=== PATIENT | female | born 1980 | race Caucasian/White ===

== ENCOUNTER 2023-07-20 16:19 | Emergency (ER) | payer OTHER, SELFPAY ==
[2023-07-20 16:34] VITALS: BP 142/97
[2023-07-20 19:39] LABS: % Eosinophils 3.2 % (0-6); % Immature Granulocytes 0.3 % (0-0.5); % Lymphocytes 26.8 % (20.5-51.1); % Monocytes 5.9 % (1.7-9.3); % Neutrophils 62.8 % (42.2-75.2); Absolute Basophils 0.1 10^3/uL (0-0.2); Absolute Eosinophils 0.3 10^3/uL (0-0.7); Absolute Lymphocytes 2.1 10^3/uL (1.2-3.4); Absolute Monocytes 0.5 10^3/uL (0.1-0.6); Absolute Neutrophils 4.9 10^3/uL (1.4-6.5); Hemoglobin 13.2 g/dL (12.0-16.0); Mean Corp Hgb Conc. 33.8 g/dL (33.0-37.0); Mean Corpuscular Hgb 27.6 pg (27.0-31.0); Mean Corpuscular Volume 81.4 fL (81.0-99.0); Mean Platelet Volume 9.8 fL (7.4-10.4); Nucleated Red Blood Cells % 0 %; Platelet Count 263 10^3/uL (130-400); Red Blood Cell Count 4.79 10^6/uL (4.20-5.40); White Blood Cell Count 7.8 10^3/uL (4.8-10.8)
[2023-07-20 19:50] LABS: HCG, Serum Qualitative Screen Negative
[2023-07-20 19:56] LABS: ALT (SGPT) 24 U/L (0-35); AST (SGOT) 20 U/L (14-36); Blood Urea Nitrogen 15 mg/dl (7-17); Calcium 9.1 mg/dl (8.4-10.2); Carbon Dioxide 26 mmol/L (22-30); Chloride 105 mmol/L (98-107); Glucose 93 mg/dl (70-99); Potassium 3.6 mmol/L (3.5-5.1); Sodium 135 mmol/L (135-145); Total Bilirubin 0.4 mg/dl (0.2-1.3); Total Protein 6.5 g/dl (6.3-8.2); eGFR > 60.00
[2023-07-20 20:05] LABS: Alkaline Phosphatase 105 U/L (38-126)
[2023-07-20 20:25] LABS: TSH Reflex To Free T4 0.76 uIU/ml (0.47-4.68)
[2023-07-20] MEDS: CYKLOKAPRON 1300 MG PO (21:27)
[2023-07-20 21:38] LABS: Urine Albumin Negative (Neg - Trace); Urine Bilirubin Negative (Negative); Urine Character Clear (Clear); Urine Color Yellow; Urine Glucose Negative (Negative); Urine Ketone Negative (Negative); Urine Leukocyte Negative (Negative); Urine Nitrite Negative (Negative); Urine Occult Blood 4+ (Negative); Urine Urobilinogen Negative (Neg - 1+)
[2023-07-20 21:47] LABS: Urine Red Blood Cell >100 /HPF (0-2)
[2023-07-20 21:48] LABS: Urine White Cell None Seen /HPF (0-5)
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
== END 2023-07-20 21:32 | disposition home or self-care (01) ==
LOC: EMR 16:19
PROVIDERS: Nurse Practitioner; EMERGENCY PHYSICIAN Emergency Medicine; FAMILY PHYSICIAN Family Medicine
DX: N93.9 Abnormal uterine and vaginal bleeding, unspecified (principal)
CPT/HCPCS: 99284; 76830; 76856; 80053; 81003; 81015; 84443; 84703; 85025

== ENCOUNTER 2023-08-20 12:55 | Emergency (ER) | payer OTHER, SELFPAY ==
[2023-08-20 13:05] VITALS: BP 144/104
[2023-08-20 13:27] LABS: % Basophils 1.1 % (0-2); % Eosinophils 2.1 % (0-6); % Immature Granulocytes 0.3 % (0-0.5); % Monocytes 5.4 % (1.7-9.3); % Neutrophils 65.1 % (42.2-75.2); Absolute Basophils 0.1 10^3/uL (0-0.2); Absolute Eosinophils 0.1 10^3/uL (0-0.7); Absolute Lymphocytes 1.7 10^3/uL (1.2-3.4); Absolute Monocytes 0.4 10^3/uL (0.1-0.6); Absolute Neutrophils 4.3 10^3/uL (1.4-6.5); Hemoglobin 13.2 g/dL (12.0-16.0); Mean Corpuscular Hgb 26.4 pg (27.0-31.0); Mean Platelet Volume 9.7 fL (7.4-10.4); Nucleated Red Blood Cells % 0 %; Platelet Count 276 10^3/uL (130-400); Red Cell Dist. Width 13.3 % (11.5-14.5); White Blood Cell Count 6.7 10^3/uL (4.8-10.8)
[2023-08-20 13:43] LABS: HCG, Serum Qualitative Screen Negative
[2023-08-20 13:46] VITALS: BMI 39.2
[2023-08-20 13:50] LABS: ALT (SGPT) 26 U/L (0-35); AST (SGOT) 21 U/L (14-36); Albumin 3.9 g/dl (3.5-5.0); Alkaline Phosphatase 92 U/L (38-126); Blood Urea Nitrogen 10 mg/dl (7-17); Carbon Dioxide 24 mmol/L (22-30); Chloride 108 mmol/L (98-107); Estimated Creatinine Clearance > 125 ml/min; Glucose 100 mg/dl (70-99); Potassium 3.9 mmol/L (3.5-5.1); Sodium 136 mmol/L (135-145); Total Bilirubin 0.4 mg/dl (0.2-1.3); Total Protein 6.6 g/dl (6.3-8.2); eGFR > 60.00
--- NOTE | 2023-08-20 14:04 | ED.GENMED ---
History of Present Illness
General
Chief Complaint: Allergic Reaction
Source: patient
Exam Limitations: none
Time Seen by Provider: 08/20/23 13:45
Travel History
Have you had any contact with someone who has COVID-19?: No
Do you have any symptoms of coronavirus? Fever > 100 degrees, chills, cough, shortness of breath, sore throat, loss of taste or smell, muscle aches, or headache?: No
History of Present Illness
History of Present Illness:
See MDM
Past History
Past History
ED Past Medical History: Other (History of migraines)
ED Past Surgical History: Tonsilectomy
Social History
Tobacco: Non-smoker
Alcohol: Occasional
Drug: None
Personal:
Living: with family
Employment: Employed
Phy Exam
Physical Exam
Physical Exam:
See MDM
Course
Orders/Labs/Results
Orders:
Orders
08/20/23 13:10
Test Result ONCE
08/20/23 13:16
Complete Blood Count/With Diff Urgent
Comprehensive Metabolic Panel Urgent
HCG, Serum Qualitative Screen Urgent
Abnormal Lab Results
08/20/23
13:16
MCV 80.0 L fL
(81.0-99.0)
MCH 26.4 L pg
(27.0-31.0)
Chloride 108 H mmol/L
(98-107)
Glucose 100 H mg/dl
(70-99)
08/20/23 13:16
08/20/23 13:16
Vital Signs
Initial and Last Documented VS:
Initial Vital Signs
Temp Pulse Resp BP Pulse Ox
98.2 F 103 22 144/104 98
08/20/23 13:05 08/20/23 13:05 08/20/23 13:05 08/20/23 13:05 08/20/23 13:05
Last Documented Vital Signs
Temp Pulse Resp BP Pulse Ox
98.2 F 81 18 140/87 98
08/20/23 13:05 08/20/23 14:37 08/20/23 14:37 08/20/23 14:37 08/20/23 13:05
MDM/Problems Addressed
Differential Diagnosis Includes:
HPI and MDM Narrative:
42-year-old female presenting itching rash over the past day or 2. She is unsure if this is related to a new prescription of propranolol and gabapentin. She states the rash started on her elbows legs. They begin to bleed when she scratches them
and off. She called her doctor and explained that she thought she had some soreness and pain in her mouth. She was sent in for evaluation.
On exam, there is urticaria noted. She has a negative Nikolsky sign. There is mild rash to her chest. I do not appreciate any significant ulceration in the nose or mouth. She denies pain with urination
Physical exam
General: Well appearing and non-toxic
HEENT: protecting airway. No bleeding ulcers noted to mouth
Neck: appears supple
CV: No evidence of cyanosis
Resp: No accessory muscle use
Abd: Non-distended
Extremities: No deformities
Neuro: alert
Psych: Normal affect
Skin: Urticaria to chest, elbows and legs. Dime size unroofed blister to dorsum of left foot
Problems Addressed including Acute and Chronic Conditions affecting care:
1. Rash
Acuity: acute
Prognosis: stable
Details: Given the pruritus, discussed likely allergic reaction. There is no clinical signs of Harrell-Pan's. Patient states she has followed up with rheumatology in the past and was diagnosed with rheumatoid arthritis. She states her
children have diseases. Although we discussed this could be a drug reaction from propranolol, discussed importance of rheumatology follow-up for further testing as this could be autoimmune. Will prescribe steroid taper and discussed cessation of
gabapentin and propranolol until told otherwise
Differential Diagnosis (but not limited to): Harrell-Pan syndrome, allergic reaction, adverse drug reaction
Drug therapy (if applicable): OTC meds, please see d/c instruction regarding Rx drugs
Amount and/or Complexity of Data Reviewed
Clinical info obtained from: Patient
External data reviewed: N/A
Labs I independently reviewed (but not limited to): White blood cell count normal
Radiology: N/A
Pulse Ox: not hypoxic
EKG independently reviewed: N/A
Bowl Sander: N/A
Critical Care: N/A
Risk of Complication:
Social Determinants of health: Good social support
Discussed with other providers: N/A
Escalation of Care includes Admit/Obs: After being observed in the Emergency Department, pt stable for discharge.
Occasional wrong word or 'sound a like' substitutions may have occurred due to the inherent limitations of voice recognition software. Read the chart carefully and recognize, using context, where substitutions have occurred.
*Critical Care Note
Total Time (30-74mins, 75-104mins- exclusive of procedures): Not Applicable
ED Attending Note
-
Portions of this chart may have been created with voice recognition software.� Occasional wrong word or��sound alike� substitutions may have occurred due to the inherent limitations of voice recognition software.
Discharge Plan
Departure
Patient Disposition: Home (Routine Discharge)
Date of Disposition: 08/20/23
Time of Disposition: 14:20
Patient with high blood pressure during this ER visit?: Yes
Discharge Problem:
Adverse reaction to drug
Instructions: Adverse Drug Reactions, Adult (DC), BLOOD PRESSURE
Prescriptions:
New
prednisone 10 mg tablet
See Rx Instructions .ROUTE .COMPLEX Qty: 45 0RF
Rx Instructions:
5 tabs day 1-3, 4 tabs day 4-6, 3 tabs day 7-9, 2 tabs day 10-12, 1 tab day 13-15
No Action
prenat.vits,kristyn,qyu-djqg-pfetf [ Vitamin] 1 TAB tablet
1 tab PO DAILY
ibuprofen 600 MG tablet
600 mg PO Q4HPRN PRN (Reason: moderate pain/cramps) Qty: 0 0RF
tramadol 50 mg tablet
50 mg PO TID PRN (Reason: pain) Qty: 10 0RF
tranexamic acid 650 mg tablet
1,300 mg PO Q8H 5 Days Qty: 30 0RF
Referrals:
Robert Marshall MD [Family Provider] -
Activity Restrictions/Additional Instructions:
Please return for any worsening symptoms.
You may return at any time if you have further concerns.
Please follow up with your doctor at the first available appointment, preferably this week.
Please call the mails supervisor today for first available appointment.
Thank you for choosing [facility].
Interventions
Interventions:
*Risk Screen - Suicide Last Done: 08/20/23 13:46
*General Assessment Last Done: 08/20/23 13:46
*Neglect/Abuse Screening Last Done: 08/20/23 13:46
ED- Fall Risk Assessment Last Done: 08/20/23 13:49
*ED COVID-19 Vaccine History Last Done: 08/20/23 13:46
*Nursing Disposition Last Done: 08/20/23 15:11
ED- Cardiac Assessment Last Done: 08/20/23 13:48
ED- Pulmonary Assessment Last Done: 08/20/23 13:48
ED-Skin Assessment Last Done: 08/20/23 13:48
Discharge Date and Time
Discharge Date/Time: 08/20/23 15:12
[2023-08-20 14:37] VITALS: BP 140/87
== END 2023-08-20 15:12 | disposition home or self-care (01) ==
LOC: EMR 12:55
PROVIDERS: Emergency Medicine; EMERGENCY PHYSICIAN Student in an Organized Health Care Education/Training Program; FAMILY PHYSICIAN Family Medicine
DX: R21 Rash and other nonspecific skin eruption (principal); T44.7X5A Adverse effect of beta-adrenoreceptor antagonists, initial encounter; Y92.9 Unspecified place or not applicable
CPT/HCPCS: 99283; 80053; 84703; 85025

== ENCOUNTER 2023-12-01 14:33 | Emergency (ER) | payer OTHER, SELFPAY ==
[2023-12-01 14:41] VITALS: BP 148/103
--- NOTE | 2023-12-01 15:54 | ED.GENMED ---
History of Present Illness
General
Chief Complaint: Dizziness
Time Seen by Provider: 12/01/23 15:41
Travel History
Have you had any contact with someone who has COVID-19?: No
Do you have any symptoms of coronavirus? Fever > 100 degrees, chills, cough, shortness of breath, sore throat, loss of taste or smell, muscle aches, or headache?: No
History of Present Illness
History of Present Illness:
43-year-old female presents to the emergency department for evaluation of a myriad of complaints that have been ongoing for the past 5 to 7 days. She reports headaches, dizziness, vertigo, nausea, vomiting, and general malaise for the past 5 days.
She also notes having an acute flareup of a chronic rash to her lower abdomen. She also reports intermittent shortness of breath but denies chest pain or coughing. She went to urgent care where she was evaluated with labs that were unremarkable
with the exception of a potassium of 3.3. She had a chest x-ray that was negative and a urinalysis that was negative. She was referred to the emergency department for further evaluation.
Past History
Past History
ED Past Medical History: Other (History of migraines)
ED Past Surgical History: Tonsilectomy
Social History
Tobacco: Non-smoker
Alcohol: Occasional
Drug: None
Personal:
Living: with family
Employment: Employed
Review of Systems
Review of Systems
Allergies reviewed?: Yes
All Other Systems: ROS reviewed and negative except as documented in HPI and ROS
Phy Exam
Physical Exam
Physical Exam:
GEN: Well appearing, NAD, WDWN
HEENT: Oral mucosa moist, no scleral icterus, no nasal congestion
Cardiac: Regular rate and rhythm, no murmurs
Lung: No respiratory distress, no tachypnea, lungs clear to auscultation bilaterally
MSK: No gross deformity or injuries
Skin: Good color, no pallor or jaundice, no rashes
Neuro: AO x3; CN II-XII grossly intact. BUE strength 5/5 in all valentine, sensation intact and symmetric. BLE strength 5/5 in all valentine, sensation intact and symmetric
Psych: Calm, cooperative
Course
Orders/Labs/Results
Orders:
Orders
12/01/23 14:43
Electrocardiogram (*1) Urgent
Reason for Study: Tachycardia
12/01/23 14:44
EKG- Treatment ONCE
12/01/23 15:53
Ketorolac [Toradol] 15 mg IV NOW STA
Lactated Ringers [Lr] 1,000 ml IV BOLUS
Metoclopramide [Reglan] 10 mg IV NOW STA
Potassium Chloride [KCl] 20 meq PO NOW STA
12/01/23 16:24
Lyme Progressive Urgent
TSH Reflex To Free T4 Urgent
12/01/23 14:43
12/01/23 14:43
Vital Signs
Initial and Last Documented VS:
Initial Vital Signs
Temp Pulse Resp BP Pulse Ox
98.9 F 125 18 148/103 100
12/01/23 14:41 12/01/23 14:41 12/01/23 14:41 12/01/23 14:41 12/01/23 14:41
Last Documented Vital Signs
Temp Pulse Resp BP Pulse Ox
98.9 F 70 18 143/89 100
12/01/23 14:41 12/01/23 18:19 12/01/23 18:19 12/01/23 18:19 12/01/23 18:19
MDM/Problems Addressed
MDM/Problems Addressed:
Unclear etiology to the patient's symptoms. Her labs are reassuring (obtained at urgent care and reviewed formal documentation) as well as negative TSH. She was given migraine cocktail and IV fluids with improvement in symptoms. Lyme titers sent.
Low clinical suspicion for significant bacterial infection
Comment
Comment:
EKG independently interpreted by me shows normal sinus rhythm at a rate of [address] changes concerning for ischemia, QTc of 456
*Critical Care Note
Total Time (30-74mins, 75-104mins- exclusive of procedures): Not Applicable
ED Attending Note
-
Portions of this chart may have been created with voice recognition software.� Occasional wrong word or��sound alike� substitutions may have occurred due to the inherent limitations of voice recognition software.
Discharge Plan
Departure
Patient Disposition: Home (Routine Discharge)
Date of Disposition: 12/01/23
Time of Disposition: 18:04
Patient with high blood pressure during this ER visit?: No
Discharge Problem:
Acute viral syndrome
Instructions: Headache, Adult ED
Prescriptions:
No Action
prenat.vits,kristyn,apf-giqt-akfnh [ Vitamin] 1 TAB tablet
1 tab PO DAILY
ibuprofen 600 MG tablet
600 mg PO Q4HPRN PRN (Reason: moderate pain/cramps) Qty: 0 0RF
tramadol 50 mg tablet
50 mg PO TID PRN (Reason: pain) Qty: 10 0RF
tranexamic acid 650 mg tablet
1,300 mg PO Q8H 5 Days Qty: 30 0RF
prednisone 10 mg tablet
See Rx Instructions .ROUTE .COMPLEX Qty: 45 0RF
Rx Instructions:
5 tabs day 1-3, 4 tabs day 4-6, 3 tabs day 7-9, 2 tabs day 10-12, 1 tab day 13-15
Referrals:
Robert Marshall MD [Family Provider] -
Interventions
Interventions:
*Risk Screen - Suicide Last Done: 12/01/23 14:41
*General Assessment Last Done: 12/01/23 14:41
*Neglect/Abuse Screening Last Done: 12/01/23 14:41
ED- Fall Risk Assessment Last Done: 12/01/23 15:48
*ED COVID-19 Vaccine History Last Done: 12/01/23 14:41
*Nursing Disposition Last Done: 12/01/23 18:19
ED- Neurological Assessment Last Done: 12/01/23 15:48
Discharge Date and Time
Discharge Date/Time: 12/01/23 18:19
Print Language: WELSH
[2023-12-01] MEDS: LR 1000 IV (16:12)
[2023-12-01] MEDS: TORADOL 15 MG IV (16:17)
[2023-12-01] MEDS: REGLAN 10 MG IV (16:17)
[2023-12-01 17:39] LABS: TSH Reflex To Free T4 1.19 uIU/ml (0.47-4.68)
[2023-12-01] MEDS: KCL 20 MEQ PO (18:13)
[2023-12-01 18:19] VITALS: BP 143/89
== END 2023-12-01 18:19 | disposition home or self-care (01) ==
LOC: EMR 14:33
PROVIDERS: Physician Assistant; EMERGENCY PHYSICIAN Emergency Medicine; FAMILY PHYSICIAN Family Medicine
DX: B34.9 Viral infection, unspecified (principal); R51.9 Headache, unspecified; R42 Dizziness and giddiness; R11.2 Nausea with vomiting, unspecified; R53.81 Other malaise; R21 Rash and other nonspecific skin eruption; R06.02 Shortness of breath; Z88.2 Allergy status to sulfonamides; Z88.7 Allergy status to serum and vaccine; Z88.8 Allergy status to other drugs, medicaments and biological substances; Z88.1 Allergy status to other antibiotic agents; Z91.040 Latex allergy status
CPT/HCPCS: 99284; 96374; 96375; 96361; 84443; 86618; 93005

== ENCOUNTER 2024-01-08 13:23 | Emergency (ER) | payer OTHER, SELFPAY ==
[2024-01-08 13:26] VITALS: BP 157/88
[2024-01-08 13:42] VITALS: BMI 41.7
--- NOTE | 2024-01-08 13:45 | ED.GENMED ---
History of Present Illness
General
Chief Complaint: Flank Pain
Source: patient
Exam Limitations: none
Time Seen by Provider: 01/08/24 13:34
Nursing documentation reviewed up to this point in time: agreed with
History of Present Illness
History of Present Illness:
Patient to ED with complaint of worsening right back and flank pain. Symptoms started on Friday. She was seen at and placed on Macrobid for suspected UTI. Symptoms continue to worsen. SHe went to different today and was advised to come to
ED for eval. Denies fever but reports chills and body aches. +nausea, no vomiting. Brought self to ED for eval.
Past History
Past History
ED Past Medical History: Other (History of migraines)
ED Past Surgical History: Tonsilectomy
Social History
Tobacco: Non-smoker
Alcohol: Occasional
Drug: None
Personal:
Living: with family
Employment: Employed
Review of Systems
Review of Systems
Allergies reviewed?: Yes
All Other Systems: ROS reviewed and negative except as documented in HPI and ROS
Constitutional: Reports chills
ABD/GI: Reports nausea
: Reports dysuria, frequency, urgency and bleeding
Musculoskeletal: Reports no symptoms
Skin: Reports no symptoms
Neurological: Reports no symptoms
Psychiatric: Reports no symptoms
Phy Exam
General Physical Exam
General Presentation: well appearing and mild distress
General age: appears stated age
General Skin: warm and dry
General Habitus: normal
General Mental: alert
Gastrointestinal Exam
Gastrointestinal Exam: soft, no organomegaly, non distended and cva tenderness
Musculoskeletal Exam
Musculoskeletal Exam: full ROM
Skin Exam
Skin Exam: normal color and warm/dry
Psychiatric Exam
Psychiatric Exam: normal mood/affect
Course
Orders/Labs/Results
Orders:
Orders
01/08/24 13:43
0.9% Sodium Chloride 1000 ml [Nss] 1,000 ml IV BOLUS
Ondansetron Injectable [Zofran] 4 mg IV NOW STA
01/08/24 13:44
CT Abd/pel Without Iv Or Oral Urgent
Comment:
Reason For Exam: right back/flank pain
01/08/24 13:45
Test Result ONCE
01/08/24 13:50
Complete Blood Count/With Diff Urgent
Comprehensive Metabolic Panel Urgent
HCG, Serum Qualitative Screen Urgent
Urinalysis Reflex To Culture Urgent
Date Specimen was Collected: 01/08/24
Time Specimen was Collected: 13:47
Urine Microscopic Reflex Cult Urgent
Urine Culture Urgent
OLLIE Source: U
Specimen Description:
Date Specimen was Collected: 01/08/24
Time Specimen was Collected: 13:47
01/08/24 15:13
CefTRIAXone [Rocephin] 1,000 mg IV NOW STA
Abnormal Lab Results
01/08/24
13:50
RDW 14.6 H %
(11.5-14.5)
Glucose 152 H mg/dl
(70-99)
Total Protein 6.2 L g/dl
(6.3-8.2)
Urine Ketones Trace A
(Negative)
Ur Occult Blood Reflex 3+ A
(Negative)
Leukocyte Esterase Rfl 2+ A
(Negative)
Urine RBC 26-30 A /HPF
(0-2)
Urine WBC (Reflex) 30-40 A /HPF
(0-5)
Urine Bacteria (Reflex) Moderate A
(Negative)
Urine Albumin (Reflex) 1+ A
(Neg - Trace)
01/08/24 13:50
01/08/24 13:50
Vital Signs
Initial and Last Documented VS:
Initial Vital Signs
Temp Pulse Resp BP Pulse Ox
97.4 F 100 16 157/88 98
01/08/24 13:26 01/08/24 13:26 01/08/24 13:26 01/08/24 13:26 01/08/24 13:26
Last Documented Vital Signs
Temp Pulse Resp BP Pulse Ox
98.1 F 90 14 131/84 100
01/08/24 15:31 01/08/24 15:31 01/08/24 15:31 01/08/24 15:31 01/08/24 15:31
*Radiology
Radiology exam reviewed: radiology read reviewed
*Pulse Oximetry
Patient hypoxic: no
*Critical Care Note
Total Time (30-74mins, 75-104mins- exclusive of procedures): Not Applicable
ED Attending Note
-
Portions of this chart may have been created with voice recognition software.� Occasional wrong word or��sound alike� substitutions may have occurred due to the inherent limitations of voice recognition software.
Discharge Plan
Departure
Patient Disposition: Home (Routine Discharge)
Date of Disposition: 01/08/24
Time of Disposition: 16:04
Patient with high blood pressure during this ER visit?: No
Condition: Good
Discharge Problem:
UTI (urinary tract infection)
Instructions: Urinary tract infections in adults
Prescriptions:
New
cephalexin 500 mg capsule
500 mg PO BID 7 Days Qty: 14 0RF
No Action
acetaminophen [Tylenol] 325 mg Tablet
650 mg PO Q6HPRN PRN (Reason: mild pain)
fexofenadine [Tram] 180 mg Tablet
180 mg PO HS
doxepin 10 mg Capsule
10 mg PO HSPRN PRN (Reason: sleep)
propranolol [Inderal LA] 120 mg Capsule,Extended Release 24hr
120 mg PO DAILY
propranolol 20 mg Tablet
20 mg PO DAILYPRN PRN (Reason: anxiety)
nitrofurantoin monohyd/m-cryst [Macrobid] 100 mg Capsule
100 mg PO BID
Patient Comments:
01/08/24: filled 01/04/24 for 5 days, patient states she only has 1 dose left
duloxetine [Cymbalta] 60 mg Capsule,Delayed Release(Dr/Ec)
120 mg PO DAILY
tramadol 50 mg tablet
50 mg PO BIDPRN PRN (Reason: moderate pain)
ibuprofen 600 MG tablet
600 mg PO Q4HPRN PRN (Reason: mild pain)
Referrals:
Robert Marshall MD [Family Provider] - Follow up in 2-3 days
Activity Restrictions/Additional Instructions:
Return to the emergency department immediately for any changes in/worsening of your symptoms.
Interventions
Interventions:
*Risk Screen - Suicide Last Done: 01/08/24 13:43
*General Assessment Last Done: 01/08/24 13:42
*Neglect/Abuse Screening Last Done: 01/08/24 13:43
*ED COVID-19 Vaccine History Last Done: 01/08/24 13:26
PH-Wlbiox-Ucfcacrmgl Assessment Last Done: 01/08/24 14:13
ED-Female Genitourinary Assessment Last Done: 01/08/24 14:13
Discharge Date and Time
Print Language: SWISS
[2024-01-08] MEDS: NSS 1000 IV (13:55)
[2024-01-08] MEDS: ZOFRAN 4 MG IV (13:56)
[2024-01-08 14:16] LABS: % Basophils 0.9 % (0-2); % Eosinophils 2.6 % (0-6); % Immature Granulocytes 0.5 % (0-0.5); % Lymphocytes 22.2 % (20.5-51.1); % Monocytes 2.8 % (1.7-9.3); Absolute Basophils 0.1 10^3/uL (0-0.2); Absolute Eosinophils 0.2 10^3/uL (0-0.7); Absolute Lymphocytes 1.9 10^3/uL (1.2-3.4); Absolute Monocytes 0.2 10^3/uL (0.1-0.6); Hematocrit 37.8 % (37.0-47.0); Hemoglobin 12.6 g/dL (12.0-16.0); Mean Corp Hgb Conc. 33.3 g/dL (33.0-37.0); Mean Corpuscular Volume 81.1 fL (81.0-99.0); Mean Platelet Volume 10.4 fL (7.4-10.4); Nucleated Red Blood Cells % 0 %; Platelet Count 250 10^3/uL (130-400); Red Blood Cell Count 4.66 10^6/uL (4.20-5.40); Red Cell Dist. Width 14.6 % (11.5-14.5); White Blood Cell Count 8.5 10^3/uL (4.8-10.8)
[2024-01-08 14:31] LABS: HCG, Serum Qualitative Screen Negative
[2024-01-08 14:34] LABS: ALT (SGPT) 17 U/L (0-35); AST (SGOT) 17 U/L (14-36); Albumin 3.9 g/dl (3.5-5.0); Alkaline Phosphatase 97 U/L (38-126); Blood Urea Nitrogen 11 mg/dl (7-17); Calcium 9.2 mg/dl (8.4-10.2); Carbon Dioxide 24 mmol/L (22-30); Chloride 104 mmol/L (98-107); Estimated Creatinine Clearance > 125 ml/min; Glucose 152 mg/dl (70-99); Potassium 3.8 mmol/L (3.5-5.1); Sodium 136 mmol/L (135-145); Total Bilirubin 0.6 mg/dl (0.2-1.3); Total Protein 6.2 g/dl (6.3-8.2); eGFR > 60.00
[2024-01-08 14:48] LABS: Urine Albumin 1+ (Neg - Trace); Urine Bilirubin Negative (Negative); Urine Character Slightly Cloudy (Clear); Urine Color Yellow; Urine Glucose Negative (Negative); Urine Ketone Trace (Negative); Urine Leukocyte 2+ (Negative); Urine Nitrite Negative (Negative); Urine Occult Blood 3+ (Negative); Urine Urobilinogen Negative (Neg - 1+)
[2024-01-08 14:50] VITALS: BP 131/63
[2024-01-08 15:07] LABS: Urine Urothelial Cell 0-2 /LPF (FEW)
[2024-01-08 15:08] LABS: Urine Bacteria Moderate (Negative); Urine Red Blood Cell 26-30 /HPF (0-2); Urine White Cell 30-40 /HPF (0-5)
[2024-01-08] MEDS: ROCEPHIN 1000 MG IV (15:24)
[2024-01-08 15:31] VITALS: BP 131/84
[2024-01-08 16:52] VITALS: BP 113/64
== END 2024-01-08 16:54 | disposition home or self-care (01) ==
LOC: EMR 13:23
PROVIDERS: Nurse Practitioner; EMERGENCY PHYSICIAN Emergency Medicine; FAMILY PHYSICIAN Family Medicine
DX: N39.0 Urinary tract infection, site not specified (principal)
CPT/HCPCS: 99284; 96374; 96375; 96361; 74176; 80053; 81003; 81015; 84703; 85025; 87086

== ENCOUNTER 2024-03-01 10:37 | Emergency (ER) | payer OTHER, SELFPAY ==
[2024-03-01 10:45] VITALS: BP 172/99
--- NOTE | 2024-03-01 11:29 | ED.GENMED ---
History of Present Illness
General
Chief Complaint: Ear Problem
Time Seen by Provider: 03/01/24 11:05
History of Present Illness
History of Present Illness:
43yoF hx migraines, RA presenting with diffuse joint aches, headache, and left ear pain for the past 3 weeks. pt states she has been seen at urgent care and her PCP multiple times, had negative covid test, negative lyme x2, negative blood work. Pt
states she was started on doxycyline on 02/18 for lyme prophylaxis and then was switched to amoxicillin on 02/25 due to left ear pain. Pt reports decreased hearing in left ear with intermittent tinnitus. Pt reports left sided headache that feels like
'my skull is being crushed', different from previous migraines. Pt states headache is worse by 'everything' and relieved by nothing. Pt denies numbness, weakness, tingling, or visual changes. Pt states she has been taking motrin around the clock and
does not know if she has had a fever. Pt reports diffuse joint aches.
Past History
Past History
ED Past Medical History: Other (History of migraines)
ED Past Surgical History: Tonsilectomy
Social History
Tobacco: Non-smoker
Alcohol: Occasional
Drug: None
Personal:
Living: with family
Employment: Employed
Phy Exam
Physical Exam
Physical Exam:
General: Alert, no acute distress
Head: NCAT
Eyes: clear conjunctiva. PERRLA, EOMI. No nystagmus
ENT: TMs clear bilaterally with no erythema. Ear canals clear bilaterally with no erythema. Cerumen bilateral canals, no impaction
Neck: supple. bilateral cervical tenderness to palpation. FROM
Cardiac: regular rate and rhythm, no murmur
Lungs: clear to auscultation bilaterally. No wheezes, rales, or rhonchi. Speaking full unlabored sentences. No respiratory distress.
Abdomen: soft, nondistended nontender. No rebound or guarding.
MSK: no lower extremity edema bilaterally. No deformity. No swelling or erythema to joints
Skin: warm, dry
Neuro: Alert and oriented x3. CN II - XII grossly intact with no focal deficits. No pronator drift. Normal finger to nose and heel to hastings. No slurred speech
Course
Orders/Labs/Results
Orders:
Orders
03/01/24 11:22
CT Head W/o Iv Contrast Urgent
Comment:
Reason For Exam: headache
Prochlorperazine [Compazine] 10 mg IV NOW STA
03/01/24 11:23
0.9% Sodium Chloride 1000 ml [Nss] 1,000 ml IV BOLUS
Test Result ONCE
03/01/24 11:39
CBC/With Diff [Complete Blood Count/With Diff] Urgent
CMP [Comprehensive Metabolic Panel] Urgent
, Urine Qualitative Screen [HCG, Urine Qualitative Screen] Urgent
Date Specimen was Collected: 03/01/24
Time Specimen was Collected: 11:32
Total CK [Creatine Phosphokinase] Urgent
03/01/24 12:15
Ketorolac [Toradol] 15 mg IV NOW STA
Abnormal Lab Results
03/01/24
11:39
Abs Immat Gran (auto) 0.1 H 10^3/uL
(0-0.05)
Absolute Neuts (auto) 7.8 H 10^3/uL
(1.4-6.5)
Immature Gran % 0.7 H %
(0-0.5)
Lymphocytes % 17.6 L %
(20.5-51.1)
Glucose 102 H mg/dl
(70-99)
03/01/24 11:39
03/01/24 11:39
Vital Signs
Initial and Last Documented VS:
Initial Vital Signs
Temp Pulse Resp BP Pulse Ox
97.7 F 85 16 172/99 98
03/01/24 10:45 03/01/24 10:45 03/01/24 10:45 03/01/24 10:45 03/01/24 10:45
Last Documented Vital Signs
Temp Pulse Resp BP Pulse Ox
97.7 F 74 16 138/75 97
03/01/24 10:45 03/01/24 13:09 03/01/24 13:09 03/01/24 13:09 03/01/24 13:09
MDM/Problems Addressed
Differential Diagnosis Includes:
migraine, brain mass, viral syndrome, rheumatological disorder, electrolyte abnormality
MDM/Problems Addressed:
43yoF hx migraine presenting with diffuse joint aches, headache, and left ear pain for the past 3 weeks. No known fevers, but pt states she has been taking motrin around the clock. Pt was first started on doxycyline for possible lyme (despite having
negative lyme test x2) on 02/18 which was then switched to amoxicillin on 02/25. Pt states she has an appointment with lay up operator on 03/03. Neurologically intact with no focal findings on exam.
CT head shows There are no intracranial abnormalities. There is mild left ethmoid sinusitis. As read by radiology. CK within normal limits. Labs otherwise within normal limits. Discussed results with patient at bedside who denies any nasal
congestion or tooth pain. Pt states she feels better with toradol, compazine, fluids. Vitals stable. Due to patient not having any nasal congestion/tooth pain, completed 10 day course of doxycycline and is currently on amoxicillin, will not treat
further for sinusitis visualized on CT. Will start on steroids for joint aches/headache. Pt states she has an appointment with rheumatology on 03/03. Stable for discharge with rheumatology and PCP follow up
*Critical Care Note
Total Time (30-74mins, 75-104mins- exclusive of procedures): Not Applicable
ED Attending Note
-
Portions of this chart may have been created with voice recognition software.� Occasional wrong word or��sound alike� substitutions may have occurred due to the inherent limitations of voice recognition software.
Discharge Plan
Departure
Patient Disposition: Home (Routine Discharge)
Date of Disposition: 03/01/24
Time of Disposition: 12:57
Patient with high blood pressure during this ER visit?: Yes
Discharge Problem:
Headache
Instructions: Headache, Adult ED, BLOOD PRESSURE
Prescriptions:
New
methylprednisolone [Medrol (Ronak)] 4 mg tablets,dose pack
4 mg PO DAILY Qty: 21 0RF
No Action
acetaminophen [Tylenol] 325 mg Tablet
650 mg PO Q6HPRN PRN (Reason: mild pain)
fexofenadine [Tram] 180 mg Tablet
180 mg PO HS
doxepin 10 mg Capsule
10 mg PO HSPRN PRN (Reason: sleep)
propranolol [Inderal LA] 120 mg Capsule,Extended Release 24hr
120 mg PO DAILY
propranolol 20 mg Tablet
20 mg PO DAILYPRN PRN (Reason: anxiety)
nitrofurantoin monohyd/m-cryst [Macrobid] 100 mg Capsule
100 mg PO BID
Patient Comments:
01/08/24: filled 01/04/24 for 5 days, patient states she only has 1 dose left
duloxetine [Cymbalta] 60 mg Capsule,Delayed Release(Dr/Ec)
120 mg PO DAILY
tramadol 50 mg tablet
50 mg PO BIDPRN PRN (Reason: moderate pain)
ibuprofen 600 MG tablet
600 mg PO Q4HPRN PRN (Reason: mild pain)
cephalexin 500 mg capsule
500 mg PO BID 7 Days Qty: 14 0RF
Referrals:
Robert Marshall MD [Family Provider] -
Activity Restrictions/Additional Instructions:
Take medrol dospak as prescribed
Take Tylenol 975mg every 6 hours and/or ibuprofen 800mg every 8 hours with food as needed for pain
Follow up with rheumatology as scheduled on Friday
Return to the emergency department for numbness, weakness, tingling, visual changes or new/worsening symptoms
Interventions
Interventions:
*Risk Screen - Suicide Last Done: 03/01/24 11:25
*General Assessment Last Done: 03/01/24 11:25
*Neglect/Abuse Screening Last Done: 03/01/24 11:25
*Nursing Disposition Last Done: 03/01/24 13:09
Discharge Date and Time
Discharge Date/Time: 03/01/24 13:09
Print Language: BURKINAN
[2024-03-01] MEDS: NSS 1000 IV (11:56)
[2024-03-01] MEDS: COMPAZINE 10 MG IV (11:56)
[2024-03-01 12:02] LABS: % Basophils 0.9 % (0-2); % Eosinophils 3.1 % (0-6); % Immature Granulocytes 0.7 % (0-0.5); % Lymphocytes 17.6 % (20.5-51.1); % Monocytes 5.5 % (1.7-9.3); % Neutrophils 72.2 % (42.2-75.2); Absolute Basophils 0.1 10^3/uL (0-0.2); Absolute Eosinophils 0.3 10^3/uL (0-0.7); Absolute Immature Granulocytes 0.1 10^3/uL (0-0.05); Absolute Lymphocytes 1.9 10^3/uL (1.2-3.4); Absolute Monocytes 0.6 10^3/uL (0.1-0.6); Absolute Neutrophils 7.8 10^3/uL (1.4-6.5); Hematocrit 39.3 % (37.0-47.0); Hemoglobin 13.2 g/dL (12.0-16.0); Mean Corp Hgb Conc. 33.6 g/dL (33.0-37.0); Mean Corpuscular Hgb 27.2 pg (27.0-31.0); Mean Platelet Volume 10.2 fL (7.4-10.4); Nucleated Red Blood Cells % 0 %; Platelet Count 292 10^3/uL (130-400); Red Blood Cell Count 4.85 10^6/uL (4.20-5.40); Red Cell Dist. Width 13.2 % (11.5-14.5); White Blood Cell Count 10.7 10^3/uL (4.8-10.8)
[2024-03-01 12:07] LABS: HCG, Urine Qualitative Screen Negative
[2024-03-01 12:20] LABS: ALT (SGPT) 19 U/L (0-35); AST (SGOT) 26 U/L (14-36); Albumin 4.2 g/dl (3.5-5.0); Alkaline Phosphatase 83 U/L (38-126); Blood Urea Nitrogen 16 mg/dl (7-17); Calcium 9.8 mg/dl (8.4-10.2); Carbon Dioxide 24 mmol/L (22-30); Chloride 103 mmol/L (98-107); Creatine Phosphokinase 48 U/L (30-135); Glucose 102 mg/dl (70-99); Sodium 139 mmol/L (135-145); Total Bilirubin 0.5 mg/dl (0.2-1.3); Total Protein 6.6 g/dl (6.3-8.2); eGFR > 60.00
[2024-03-01] MEDS: TORADOL 15 MG IV (12:20)
[2024-03-01 13:09] VITALS: BP 138/75
== END 2024-03-01 13:09 | disposition home or self-care (01) ==
LOC: EMR 10:37
PROVIDERS: EMERGENCY PHYSICIAN Emergency Medicine; FAMILY PHYSICIAN Family Medicine
DX: R51.9 Headache, unspecified (principal)
CPT/HCPCS: 99284; 96374; 96375; 96361; 70450; 80053; 81025; 82550; 85025

== ENCOUNTER → 2024-03-17 09:46 | Outpatient (REF) | payer OTHER, SELFPAY | LOC: EMG 09:46 | PROVIDERS: ATTENDING PHYSICIAN Physician Assistant Surgical; FAMILY PHYSICIAN Family Medicine | DX: M54.16 Radiculopathy, lumbar region (principal) | CPT/HCPCS: 95886; 95911 ==

== ENCOUNTER → 2024-03-22 16:58 | Outpatient (REF) | payer OTHER, SELFPAY | LOC: RAD 16:58 | PROVIDERS: ATTENDING PHYSICIAN Nurse Practitioner Family; FAMILY PHYSICIAN Family Medicine | DX: M79.89 Other specified soft tissue disorders (principal); M25.561 Pain in right knee | CPT/HCPCS: 73564; 93971 ==

== ENCOUNTER → 2024-07-29 11:15 | Outpatient (REF) | payer OTHER, SELFPAY | LOC: RAD 11:15 | PROVIDERS: ATTENDING PHYSICIAN Nurse Practitioner Family | DX: J18.9 Pneumonia, unspecified organism (principal) | CPT/HCPCS: 71046 ==

== ENCOUNTER 2024-08-07 16:32 | Emergency (ER) | payer OTHER, SELFPAY ==
[2024-08-07 16:38] VITALS: BP 164/94
[2024-08-07 16:58] LABS: % Basophils 1.5 % (0-2); % Immature Granulocytes 0.5 % (0-0.5); % Lymphocytes 22.6 % (20.5-51.1); % Monocytes 5.4 % (1.7-9.3); Absolute Basophils 0.2 10^3/uL (0-0.2); Absolute Eosinophils 0.3 10^3/uL (0-0.7); Absolute Immature Granulocytes 0.1 10^3/uL (0-0.05); Absolute Lymphocytes 2.3 10^3/uL (1.2-3.4); Absolute Monocytes 0.6 10^3/uL (0.1-0.6); Absolute Neutrophils 6.8 10^3/uL (1.4-6.5); Hematocrit 41.9 % (37.0-47.0); Hemoglobin 13.7 g/dL (12.0-16.0); Mean Corp Hgb Conc. 32.7 g/dL (33.0-37.0); Mean Corpuscular Hgb 26.6 pg (27.0-31.0); Mean Corpuscular Volume 81.2 fL (81.0-99.0); Mean Platelet Volume 9.5 fL (7.4-10.4); Nucleated Red Blood Cells % 0 %; Platelet Count 326 10^3/uL (130-400); Red Blood Cell Count 5.16 10^6/uL (4.20-5.40); Red Cell Dist. Width 13.9 % (11.5-14.5); White Blood Cell Count 10.2 10^3/uL (4.8-10.8)
[2024-08-07 17:25] LABS: ALT (SGPT) 27 U/L (0-35); AST (SGOT) 21 U/L (14-36); Albumin 4.2 g/dl (3.5-5.0); Alkaline Phosphatase 92 U/L (38-126); Blood Urea Nitrogen 11 mg/dl (7-17); Calcium 9.9 mg/dl (8.4-10.2); Carbon Dioxide 25 mmol/L (22-30); Chloride 105 mmol/L (98-107); Glucose 101 mg/dl (70-99); Potassium 3.5 mmol/L (3.5-5.1); Sodium 141 mmol/L (135-145); Total Bilirubin 0.4 mg/dl (0.2-1.3); eGFR > 60.00
[2024-08-07 19:57] VITALS: BMI 40.8
[2024-08-07 20:41] VITALS: BP 116/64
--- NOTE | 2024-08-07 21:37 | ED.GENMED ---
History of Present Illness
General
Chief Complaint: Breathing Problem
Time Seen by Provider: 08/07/24 19:38
History of Present Illness
History of Present Illness:
43-year-old female with history of undiagnosed autoimmune disease presenting for persistent cough and shortness of breath. Patient reports symptoms have been ongoing for over a week. Notes that she was seen and evaluated in the hospital and
diagnosed with pneumonia, started on cefdinir and a Z-Ronak. She reports despite antibiotic she still having shortness of breath, particularly with exertion. She feels that when she walks around her oxygen drops and her heart rate increases. She
reports that her fevers have gone away. Does note some chest tightness. She went to urgent care prior to arrival and was advised to come to the hospital. Denies any history of blood clots. Denies additional acute medical complaints.
Past History
Past History
ED Past Medical History: Other (History of migraines)
ED Past Surgical History: Tonsilectomy
Social History
Tobacco: Non-smoker
Alcohol: Occasional
Drug: None
Personal:
Living: with family
Employment: Employed
Phy Exam
Physical Exam
Physical Exam:
General: Well-appearing, no clinical signs of dehydration, nontoxic and in no acute distress
HEENT: protecting airway
Neck: appears supple
CV: Normal heart rate, regular rhythm, no evidence of cyanosis
Resp: No accessory muscle use, no increased work of breathing, lungs clear to auscultation bilaterally
Abd: Soft and non-distended, no tenderness to palpation
Extremities: No deformities, no swelling
Neuro: alert, no focal neurologic deficit
: deferred
Rectal: deferred
Psych: Normal affect
Skin: Intact
Course
Orders/Labs/Results
Orders:
Orders
08/07/24 16:35
Electrocardiogram (*1) Urgent
Reason for Study: Bradycardia / Tachycardia
EKG- Treatment ONCE
08/07/24 16:48
Complete Blood Count/With Diff Urgent
Comprehensive Metabolic Panel Urgent
08/07/24 21:11
D-Dimer Urgent
Troponin I Urgent
08/07/24 21:55
CR Chest - 2 Views Urgent
Comment:
Reason For Exam: cough and sob
Abnormal Lab Results
08/07/24
16:48
MCH 26.6 L pg
(27.0-31.0)
MCHC 32.7 L g/dL
(33.0-37.0)
Abs Immat Gran (auto) 0.1 H 10^3/uL
(0-0.05)
Absolute Neuts (auto) 6.8 H 10^3/uL
(1.4-6.5)
Glucose 101 H mg/dl
(70-99)
08/07/24 16:48
08/07/24 16:48
Vital Signs
Initial and Last Documented VS:
Initial Vital Signs
Temp Pulse Resp BP Pulse Ox
98.2 F 94 20 164/94 98
08/07/24 16:38 08/07/24 16:38 08/07/24 16:38 08/07/24 16:38 08/07/24 16:38
Last Documented Vital Signs
Temp Pulse Resp BP Pulse Ox
97.8 F 78 22 116/64 99
08/07/24 20:41 08/07/24 20:41 08/07/24 20:41 08/07/24 20:41 08/07/24 20:41
MDM/Problems Addressed
MDM/Problems Addressed:
43-year-old female with history of an undiagnosed autoimmune disease presenting for persistent cough and shortness of breath after recent diagnosis of pneumonia. Vital signs are normal.
On exam patient is resting comfortably, no acute distress or discomfort. No increased work of breathing, lungs clear to auscultation. Symptoms appear consistent with a postinfectious cough versus failure of outpatient therapy. However patient
afebrile, no respiratory distress and nontoxic with lower suspicion for failure of outpatient therapy. PE is a consideration. She notes that every time she walks she feels like her heart rate goes up and oxygen goes down. For this reason we will
obtain laboratory analysis including D-dimer. Will plan for chest x-ray imaging versus CT of the chest pending dimer.
22:00 - Dimer is undetectable without concern for PE at this time. For this reason we will obtain chest x-ray imaging to evaluate for pneumonia
22:10 -patient is refusing ambulatory pulse ox and she is refusing imaging because she has to go home and take care of her daughter. Patient is competent to make her own decisions. She is breathing comfortably without any present hypoxia. Feel
stable for discharge with continued outpatient supportive therapy. Return precautions discussed
*Critical Care Note
Total Time (30-74mins, 75-104mins- exclusive of procedures): Not Applicable
ED Attending Note
-
Portions of this chart may have been created with voice recognition software.� Occasional wrong word or��sound alike� substitutions may have occurred due to the inherent limitations of voice recognition software.
Discharge Plan
Departure
Prescriptions:
No Action
acetaminophen [Tylenol] 325 mg Tablet
650 mg PO Q6HPRN PRN (Reason: mild pain)
fexofenadine [Tram] 180 mg Tablet
180 mg PO HS
doxepin 10 mg Capsule
10 mg PO HSPRN PRN (Reason: sleep)
propranolol [Inderal LA] 120 mg Capsule,Extended Release 24hr
120 mg PO DAILY
propranolol 20 mg Tablet
20 mg PO DAILYPRN PRN (Reason: anxiety)
nitrofurantoin monohyd/m-cryst [Macrobid] 100 mg Capsule
100 mg PO BID
Patient Comments:
01/08/24: filled 01/04/24 for 5 days, patient states she only has 1 dose left
duloxetine [Cymbalta] 60 mg Capsule,Delayed Release(Dr/Ec)
120 mg PO DAILY
tramadol 50 mg tablet
50 mg PO BIDPRN PRN (Reason: moderate pain)
ibuprofen 600 MG tablet
600 mg PO Q4HPRN PRN (Reason: mild pain)
cephalexin 500 mg capsule
500 mg PO BID 7 Days Qty: 14 0RF
methylprednisolone [Medrol (Ronak)] 4 mg tablets,dose pack
4 mg PO DAILY Qty: 21 0RF
Referrals:
Rboert Marshall MD [Family Provider] -
Interventions
Interventions:
*Risk Screen - Suicide Last Done: 08/07/24 16:38
*General Assessment Last Done: 08/07/24 16:38
*Neglect/Abuse Screening Last Done: 08/07/24 19:59
ED- Fall Risk Assessment Last Done: 08/07/24 19:58
*ED COVID-19 Vaccine History Last Done: 08/07/24 16:38
ED- Cardiac Assessment Last Done: 08/07/24 19:59
ED- Pulmonary Assessment Last Done: 08/07/24 19:59
Discharge Date and Time
Print Language: OCCITAN
[2024-08-07 21:41] LABS: D-Dimer < 0.27 ug/mlFEU (0.00-0.50)
[2024-08-07 21:49] LABS: Troponin I < 0.012 ng/ml
--- NOTE | 2024-08-07 22:18 | PTCARENOTE ---
RN in room to take pt to get a CXR. Pt states she is not able to stay an longer. Pt refused CXR and Ambulatory pulse ox. Pt sates she didn't even want to come here and Urgent Care made her come. Valentina made aware and bedside to talk to pt.
== END 2024-08-07 22:24 | disposition home or self-care (01) ==
LOC: EMR 16:32
PROVIDERS: Emergency Medicine; EMERGENCY PHYSICIAN Student in an Organized Health Care Education/Training Program; FAMILY PHYSICIAN Family Medicine
DX: R05.9 Cough, unspecified (principal); R06.02 Shortness of breath; R07.89 Other chest pain; R50.9 Fever, unspecified; J18.9 Pneumonia, unspecified organism; M35.9 Systemic involvement of connective tissue, unspecified; G43.909 Migraine, unspecified, not intractable, without status migrainosus; Z88.2 Allergy status to sulfonamides; Z88.7 Allergy status to serum and vaccine; Z88.8 Allergy status to other drugs, medicaments and biological substances; Z88.1 Allergy status to other antibiotic agents; Z91.040 Latex allergy status
CPT/HCPCS: 99283; 80053; 84484; 85025; 85379; 93005

== ENCOUNTER → 2024-09-16 09:29 | Outpatient (REF) | payer OTHER, SELFPAY | LOC: HWRAD 09:29 | PROVIDERS: ATTENDING PHYSICIAN Nurse Practitioner Family | DX: J98.4 Other disorders of lung (principal); M06.00 Rheumatoid arthritis without rheumatoid factor, unspecified site | CPT/HCPCS: 71250 ==

== ENCOUNTER 2024-11-05 08:35 | Inpatient (IN) | payer OTHER, SELFPAY ==
[2024-11-04] VITALS (7 sets, daily range): BP systolic 108–157; BP diastolic 59–130; BMI 38.3
[2024-11-04 17:27] LABS: % Basophils 0.9 % (0-2); % Eosinophils 6.4 % (0-6); % Immature Granulocytes 0.3 % (0-0.5); % Lymphocytes 22.6 % (20.5-51.1); % Monocytes 8.8 % (1.7-9.3); Absolute Basophils 0.1 10^3/uL (0-0.2); Absolute Eosinophils 0.4 10^3/uL (0-0.7); Absolute Lymphocytes 1.5 10^3/uL (1.2-3.4); Absolute Monocytes 0.6 10^3/uL (0.1-0.6); Absolute Neutrophils 4.1 10^3/uL (1.4-6.5); Hemoglobin 12.5 g/dL (12.0-16.0); Mean Corp Hgb Conc. 32.1 g/dL (33.0-37.0); Mean Corpuscular Hgb 25.2 pg (27.0-31.0); Mean Corpuscular Volume 78.6 fL (81.0-99.0); Mean Platelet Volume 9.9 fL (7.4-10.4); Nucleated Red Blood Cells % 0 %; Platelet Count 247 10^3/uL (130-400); Red Blood Cell Count 4.96 10^6/uL (4.20-5.40); Red Cell Dist. Width 13.9 % (11.5-14.5); White Blood Cell Count 6.7 10^3/uL (4.8-10.8)
--- NOTE | 2024-11-04 17:40 | ED.GENMED ---
History of Present Illness
General
Chief Complaint: Breathing Problem
Source: patient
Exam Limitations: none
Time Seen by Provider: 11/04/24 17:31
History of Present Illness
History of Present Illness:
See MDM
Past History
Past History
ED Past Medical History: Other (History of migraines)
ED Past Surgical History: Tonsilectomy
Social History
Tobacco: Non-smoker
Alcohol: Occasional
Drug: None
Personal:
Living: with family
Employment: Employed
Phy Exam
Physical Exam
Physical Exam:
See MDM
Course
Orders/Labs/Results
Orders:
Orders
11/04/24 17:04
Ipratropium/Albuterol Sulfate [Duoneb] 3 ml .ROUTE .STK-MED ONE
11/04/24 17:17
Electrocardiogram (*1) Stat
Reason for Study: Shortness of Breath
11/04/24 17:18
EKG- Treatment ONCE
11/04/24 17:20
CMP [Comprehensive Metabolic Panel] Urgent
Complete Blood Count/With Diff Urgent
HCG, Serum Qualitative Screen Urgent
Comment: ADD ON
11/04/24 17:21
NT-proBNP Urgent
Comment: ADD ON
Troponin I Urgent
11/04/24 17:37
CT Chest PE Study Urgent
Comment:
Reason For Exam: SOB
Albuterol Sulfate [Ventolin Nebules] 7.5 mg INH R NOW STA
Dexamethasone Sod Phosphate [Decadron] 10 mg IV NOW STA
Ipratropium Nebs [Atrovent Nebules] 1 mg INH R NOW STA
Lorazepam [Ativan] 1 mg IV NOW STA
11/04/24 17:38
Magnesium Sulfate 2 Gram/50 ml [Magnesium Sulfate] 2 gram in 50 ml IV NOW
11/04/24 17:39
Add On- LAB Urgent
Tests Added?: HCG qualitative
COVID-19 Antigen Urgent
Source: Nasal Swab
Influenza A+B Rapid Molecular Urgent
OLLIE Source: Nasal Swab
Specimen Description:
11/04/24 17:41
Ketorolac [Toradol] 30 mg IV NOW STA
11/04/24 17:44
Add On- LAB Urgent
Tests Added?: pro-BNP
11/04/24 19:19
Azithromycin 500 mg IVPB NOW Azithromycin 500 mg/250 ml [Zithromax Infusion] 500 mg in 250 ml IV NOW
CefTRIAXone [Rocephin] 2,000 mg IV NOW STA
Abnormal Lab Results
11/04/24
17:20
MCV 78.6 L fL
(81.0-99.0)
MCH 25.2 L pg
(27.0-31.0)
MCHC 32.1 L g/dL
(33.0-37.0)
Eosinophils % 6.4 H %
(0-6)
Potassium 3.4 L mmol/L
(3.5-5.1)
Chloride 110 H mmol/L
(98-107)
Glucose 128 H mg/dl
(70-99)
11/04/24 17:20
11/04/24 17:20
Vital Signs
Initial and Last Documented VS:
Initial Vital Signs
Temp Pulse Resp BP Pulse Ox
97.5 F 125 26 157/102 99
11/04/24 16:41 11/04/24 16:41 11/04/24 16:41 11/04/24 16:41 11/04/24 16:41
Last Documented Vital Signs
Temp Pulse Resp BP Pulse Ox
97.5 F 107 19 155/84 100
11/04/24 16:41 11/04/24 17:30 11/04/24 17:30 11/04/24 17:00 11/04/24 17:30
MDM/Problems Addressed
Differential Diagnosis Includes:
HPI and MDM Narrative:
43-year-old female presenting for evaluation of shortness of breath. Over the past few days, patient has been coughing and complaining of trouble breathing. She followed with PCP who noted a wheeze and started a breathing treatment. She was sent
to the emergency department for further evaluation given that she has no history of asthma. On arrival, nursing staff started another DuoNeb due to audible wheezing. When I evaluated the patient, she is anxious appearing. She is tachycardic and
has diffuse wheezing throughout. Given her discomfort without prior history of asthma, will obtain CT to rule out PE. Patient does acknowledge that her mother has a history of a saddle embolism. Will give dose of Ativan for anxiety and Toradol
for headache.
Patient started on hour-long nebulizer treatment and given 10 mg of IV Decadron in addition to 2 g of magnesium. Based on her discomfort and significant shortness of breath, will ultimately admit
Physical exam
General: Uncomfortable, anxious, tachypneic
HEENT: protecting airway
Neck: appears supple
CV: No evidence of cyanosis. Tachycardic
Resp: No accessory muscle use. Tachypnea. Diffuse wheezing throughout
Abd: Non-distended
Extremities: No deformities
Neuro: alert
Psych: Anxious
Skin: Intact
Problems Addressed including Acute and Chronic Conditions affecting care:
1. Shortness of breath
Acuity: acute
Prognosis: unstable
Details: Given significant discomfort, will obtain CT to rule out PE. Will start hour-long nebulizer treatment and provide IV steroids
Updates
CT negative for PE. CT consistent with pneumonia. Will start azithromycin and Rocephin. Will admit given severity of symptoms
Differential Diagnosis (but not limited to): Pulmonary embolism, bronchitis, pulm edema
Testing considered: Chest x-ray
Drug therapy (if applicable): OTC meds, please see d/c instruction regarding Rx drugs
Amount and/or Complexity of Data Reviewed
Clinical info obtained from: Patient
External data reviewed: N/A
Labs I independently reviewed (but not limited to): White blood cell count normal
Radiology: The CT scan was personally and independently reviewed. In addition, official CT report reviewed.
Pulse Ox: not hypoxic
EKG independently reviewed: Sinus tachycardia, normal axis, no STEMI
Drying Room Supervisor: Sinus tachycardia
Critical Care: The high probability of a clinically significant, sudden or life threatening deterioration of the pulmonary system(s) required my full and direct attention, intervention and personal management. The aggregate critical care time was 33
minutes. This time is in addition to time spent performing reported procedures but includes the following:
[x] Data Review and interpretation
[x] Patient assessment and monitoring of vital signs
[x] Documentation
[x] Medication orders and management
Risk of Complication:
Social Determinants of health: Good social support
Discussed with other providers: Hospitalist
Escalation of Care includes Admit/Obs: Given the shortness of breath with pneumonia, will start antibiotics and admit
Occasional wrong word or 'sound a like' substitutions may have occurred due to the inherent limitations of voice recognition software. Read the chart carefully and recognize, using context, where substitutions have occurred.
*Critical Care Note
Total Time (30-74mins, 75-104mins- exclusive of procedures): 33 min
ED Attending Note
-
Portions of this chart may have been created with voice recognition software.� Occasional wrong word or��sound alike� substitutions may have occurred due to the inherent limitations of voice recognition software.
Discharge Plan
Departure
Patient Disposition: Admit
Date of Disposition: 11/04/24
Time of Disposition: 19:21
Admit to: Med/Surg
Presentation/result/management discussed w/ accepting MD/DO: Hospitalist
Discharge Problem:
PNA (pneumonia), Wheezing
Prescriptions:
No Action
acetaminophen [Tylenol] 325 mg Tablet
650 mg PO Q6HPRN PRN (Reason: mild pain)
fexofenadine [Tram] 180 mg Tablet
180 mg PO HS
doxepin 10 mg Capsule
10 mg PO HSPRN PRN (Reason: sleep)
propranolol [Inderal LA] 120 mg Capsule,Extended Release 24hr
120 mg PO DAILY
propranolol 20 mg Tablet
20 mg PO DAILYPRN PRN (Reason: anxiety)
nitrofurantoin monohyd/m-cryst [Macrobid] 100 mg Capsule
100 mg PO BID
Patient Comments:
01/08/24: filled 01/04/24 for 5 days, patient states she only has 1 dose left
duloxetine [Cymbalta] 60 mg Capsule,Delayed Release(Dr/Ec)
120 mg PO DAILY
tramadol 50 mg tablet
50 mg PO BIDPRN PRN (Reason: moderate pain)
ibuprofen 600 MG tablet
600 mg PO Q4HPRN PRN (Reason: mild pain)
cephalexin 500 mg capsule
500 mg PO BID 7 Days Qty: 14 0RF
methylprednisolone [Medrol (Ronak)] 4 mg tablets,dose pack
4 mg PO DAILY Qty: 21 0RF
Referrals:
Robert Marshall MD [Family Provider] -
Interventions
Interventions:
*Risk Screen - Suicide Last Done: 11/04/24 16:41
*General Assessment Last Done: 11/04/24 16:41
*Neglect/Abuse Screening Last Done: 11/04/24 16:41
ED- Pulmonary Assessment Last Done: 11/04/24 17:32
Discharge Date and Time
Print Language: [place]IZ[place]
[2024-11-04 17:41] LABS: ALT (SGPT) 30 U/L (0-35); AST (SGOT) 26 U/L (14-36); Albumin 4.1 g/dl (3.5-5.0); Alkaline Phosphatase 90 U/L (38-126); Blood Urea Nitrogen 16 mg/dl (7-17); Calcium 9.3 mg/dl (8.4-10.2); Carbon Dioxide 25 mmol/L (22-30); Chloride 110 mmol/L (98-107); Glucose 128 mg/dl (70-99); Potassium 3.4 mmol/L (3.5-5.1); Sodium 142 mmol/L (135-145); Total Bilirubin 0.4 mg/dl (0.2-1.3); Total Protein 6.5 g/dl (6.3-8.2); eGFR > 60.00
[2024-11-04 17:49] LABS: HCG, Serum Qualitative Screen Negative
[2024-11-04 17:51] LABS: Troponin I < 0.012 ng/ml
[2024-11-04] MEDS: ATROVENT NEBULES 1 MG INH (18:01)
[2024-11-04] MEDS: VENTOLIN NEBULES 7.5 MG INH (18:01)
[2024-11-04 18:02] LABS: NT-proBNP 20.2 pg/ml
[2024-11-04] MEDS: TORADOL 30 MG IV (18:03)
[2024-11-04] MEDS: MAGNESIUM SULFATE 50 IV (18:05)
[2024-11-04] MEDS: DECADRON 10 MG IV (18:06)
[2024-11-04] MEDS: ATIVAN 1 MG IV (18:08)
--- NOTE | 2024-11-04 19:57 | HPS.HSE ---
Addendum entered and electronically signed by Leno Miguel, DO 11/04/24 21:20:
Update: COVID negative, Influenza negative. Procalcitonin undetectable.
Continue supportive measures and observe off of further antibiotics.
Original Note:
Family Physician
-
Family Physician: Robert Marshall
Chief Complaint
-
Cough, SOB
History of Present Illness
Patient is a 43y F with PMH significant for anxiety / depression and ill-defined pain syndrome who presents to ED complaining of cough, wheezing and SOB. Patient states that her symptoms started on Friday evening with fatigue and chest
congestion. Friday she developed non-productive cough, myalgias / joint pain and reported fever at home to 103. Her symptoms persisted over the next few days including SOB with activity or paroxysms of coughing. Patient denies any prior history
of asthma / emphysema. She had a similar pneumonia in June and was treated with multiple courses of abx and steroids at that time before symptoms eventually resolved.
No known sick contacts.
Medical History
Past Medical History
Past Medical History: Reports Other
Additional Past Medical History:
PTSD
OCD
Anxiety
MCV / Skull Fracture
? Rheumatoid Arthritis v Fibromyalgia
Past Surgical History: Reports Other
Additional Past Surgical History:
T&A
Social History
Tobacco: Non-smoker
Alcohol: None
Drug: None
Family History
Family History: Other (Family history of RA / psoriatic arthritis / autoimmune disease.)
Allergies / Home Medications
Allergies reflects when Allergies were last updated in [facility].
Home Medications with original date entered in [facility]
Allergy/Medication List:
Allergies
Allergy/AdvReac Type Severity Reaction Status Date / Time
diphenhydramine HCl Allergy HALLUCINATI Verified 11/04/24 16:45
[From Benadryl] ONS?
etanercept [From Enbrel] Allergy Hives Verified 11/04/24 16:45
gabapentin Allergy Harrell Verified 11/04/24 16:45
Pan
Sydrome
Influenza Virus Vaccines Allergy Anaphylaxis Verified 11/04/24 16:45
latex [Latex] Allergy Rash Verified 11/04/24 16:45
levofloxacin Allergy svt Verified 11/04/24 16:45
Sulfa (Sulfonamide Allergy Rash Verified 11/04/24 16:45
Antibiotics)
sulfamethoxazole Allergy Rash Verified 11/04/24 16:45
topiramate [From Topamax] Allergy hair falls Verified 11/04/24 16:45
out
trimethoprim Allergy Rash Verified 11/04/24 16:45
Home Medications
cetirizine 10 mg tablet (Zyrtec) 10 mg PO DAILYPRN PRN allergies 11/04/24
cholecalciferol (vitamin D3) 125 mcg (5,000 unit) tablet (Vitamin D3) 250 mcg PO FR 11/04/24
cod liver oil 1 cap PO HS 11/04/24
duloxetine 30 mg capsule,delayed release (Cymbalta) 90 mg PO HS 11/04/24
ibuprofen 400 mg tablet 600 mg PO DAILYPRN PRN mild pain 11/04/24
lisdexamfetamine 60 mg capsule (Vyvanse) 60 mg PO DAILY 11/04/24
propranolol 60 mg tablet 60 mg PO BIDPRN PRN anixety 11/04/24
therapeutic multivitamin 1 tab PO DAILY 11/04/24
Review of Systems
-
History Source: Patient
A 12 point ROS was completed and negative except as noted: Yes
Constitutional: Reports Fever and Fatigue; Denies Chills
EENT: Denies Sore Throat
Respiratory: Reports Cough and Trouble Breathing
Cardiac: Denies Chest Pain or Palpitations
Abdomen/GI: Denies Abdominal Pain, Nausea, Vomiting or Diarrhea
: Denies Dysuria or Frequency
Musculoskeletal: Reports Joint Pain and Muscle Pain; Denies Edema
Neurological: Denies Dizzy or Headache
Psych: Reports Anxiety and OCD; Denies Depression
Physical Exam
Vital Signs
Vital Signs
Temp Pulse Resp BP Pulse Ox
97.5 F 96 19 120/74 98
11/04/24 16:41 11/04/24 19:30 11/04/24 17:30 11/04/24 19:00 11/04/24 19:30
Physical Exam
General: Other (43y F in mild distress due to wheezing / cough.)
HEENT: Moist mucous membranes and PERRLA
Respiratory: Other (Diffuse coarse breath sounds and expiratory wheezes. )
Cardiac: S1/S2 and Tachycardia; No Murmur
GI: Soft, Non Tender, Non Distended and Normal Bowel Sounds
Musculoskeletal: No Clubbing, No Cyanosis and No Edema
Neuro: AO x 3
Laboratory Results
-
11/04/24 17:20
11/04/24 17:20
Laboratory Results
Total Bilirubin 0.4 mg/dl (0.2-1.3) 11/04/24 17:20
AST 26 U/L (14-36) 11/04/24 17:20
ALT 30 U/L (0-35) 11/04/24 17:20
Alkaline Phosphatase 90 U/L (38-126) 11/04/24 17:20
Troponin I < 0.012 ng/ml 11/04/24 17:21
Impression/Plan
-
A/P: Patient is a 43y F with PMH significant for PTSD / OCD who presents to ED complaining of cough, wheezing and SOB.
Asthmatic Bronchitis
- Observe overnight for further evaluation and treatment.
- Patient is afebrile without leukocytosis or L shift. Not hypoxemic.
- CT scan findings are subtle / mild and not consistent with pulmonary exam (more diffuse wheezing / rhonchi).
- Seems most c/w asthmatic bronchitis - likely triggered by viral infection.
- COVID / Flu still pending in the ED.
- Added procalcitonin - would hold additional abx if this is normal / negative.
- Continue IV steroids and taper as symptoms improve.
- Nebs ATC and PRN.
- Follow for clinical improvement.
- Given similar episode in June - would consider outpatient Pulmonary evaluation for additional recommendations / work-up.
Pain Syndrome
- Patient notes that she was diagnosed with RA at age 24. Had been on Humira / Plaquenil and occasional steroids since that time.
- Recently started seeing a new Triple Valve Tester who questioned the diagnosis. All prior meds have since been discontinued.
- Current working diagnosis is fibromyalgia. Continue duloxetine.
- Presence of autoimmune process unclear at this time.
- Follow-up with Rheum as an outpatient.
OCD
PTSD
- Continue duloxetine as noted above.
DVT Prophylaxis: Lovenox
Code Status: Full
[2024-11-04] MEDS: ROCEPHIN 2000 MG IV (20:03)
[2024-11-04] MEDS: ZITHROMAX INFUSION 250 IV (20:03)
[2024-11-04 20:32] LABS: COVID-19 Antigen Negative (Negative)
[2024-11-04 20:45] LABS: Procalcitonin < 0.05 ng/ml (0.0-0.25)
--- NOTE | 2024-11-04 22:30 | PTCARENOTE ---
Pt arrived to unit from ED, ambulated independently from stretcher to bed. AAOx3, reports 5/10 headache and lower back pain. Oriented to room, call fitzpatrick in reach.
[2024-11-04] MEDS: DUONEB INH (22:56)
[2024-11-04] MEDS: TYLENOL 650 MG PO (23:15)
[2024-11-04] MEDS: ATIVAN 0.5 MG PO (23:15)
[2024-11-04] MEDS: CYMBALTA DELAYED RELEASE 90 MG PO (23:16)
[2024-11-05] MEDS: DECADRON 4 MG IV ×3 (00:21→15:07)
[2024-11-05] MEDS: VENTOLIN NEBULES 2.5 MG INH (03:37)
--- NOTE | 2024-11-05 04:00 | PTCARENOTE ---
Pt rang call fitzpatrick and reported increased SOB and expiratory wheezing. RT notified and provided PRN albuterol treatment. PATENT PROSECUTION ATTORNEY Thor notified that pt is experiencing a harsh dry cough; PRN robitussin ordered and provided to pt.
[2024-11-05] MEDS: ROBITUSSIN 200 MG PO ×2 (04:43→15:07)
[2024-11-05 06:00] VITALS: BMI 38.5
[2024-11-05] MEDS: ATIVAN 0.5 MG PO (06:07)
[2024-11-05 07:35] VITALS: BP 140/89
[2024-11-05] MEDS: DUONEB 3 ML INH ×4 (07:40→19:39)
[2024-11-05 07:55] LABS: Hematocrit 36.4 % (37.0-47.0); Hemoglobin 11.8 g/dL (12.0-16.0); Mean Corp Hgb Conc. 32.4 g/dL (33.0-37.0); Mean Corpuscular Hgb 25.2 pg (27.0-31.0); Mean Corpuscular Volume 77.8 fL (81.0-99.0); Mean Platelet Volume 10.4 fL (7.4-10.4); Platelet Count 252 10^3/uL (130-400); Red Blood Cell Count 4.68 10^6/uL (4.20-5.40); White Blood Cell Count 9.8 10^3/uL (4.8-10.8)
[2024-11-05 08:28] LABS: Blood Urea Nitrogen 16 mg/dl (7-17); Calcium 9.5 mg/dl (8.4-10.2); Carbon Dioxide 18 mmol/L (22-30); Chloride 109 mmol/L (98-107); Estimated Creatinine Clearance > 125 ml/min; Glucose 211 mg/dl (70-99); Sodium 139 mmol/L (135-145); eGFR > 60.00
[2024-11-05 09:24] LABS: Procalcitonin < 0.05 ng/ml (0.0-0.25)
--- NOTE | 2024-11-05 10:15 | CON.PUL ---
Consultation
Consultation Request
Date/Time Consultation Requested: 11/05/2024-8 AM
Date/Time Consultation Performed: 11/05/2024-8:30 AM
Requesting Provider: Hospitalist
Performing Provider: Dr. Walker
Reason for Consultation: Shortness of breath/asthma
Medical History
-
Chief Complaint: Shortness of breath and wheezing
History of Present Illness:
43-year-old non-smoking female with a history of anxiety and depression who presented with cough, wheezing and shortness of breath after similar episode in the previous month treated with antibiotics and steroids and now reports nonproductive cough,
myalgias, joint pains and fevers of 103-pulmonary consulted for ongoing wheezing and shortness of breath 11/05/2024. The patient continues to complain of some shortness of breath, wheezing, chest tightness, nonproductive cough and offers no
complaints of hemoptysis, abdominal pain, nausea, but has myalgias and joint pains.
Past Medical History
Past Medical History: None (Asthma. PTSD. OCD. Anxiety/depression. Skull fracture.? Rheumatoid arthritis versus fibromyalgia. Tonsillectomy.)
Social History
Tobacco: Non-smoker
Alcohol: None
Drug: None
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
Living: With Family
Occupational Exposures: No known asbestos exposure
Environmental Exposures: No known tuberculosis exposure
Family History
Family History: Other (Rheumatoid arthritis, psoriatic arthritis and autoimmune disease)
Allergies / Home Medications
Allergies
Allergy/AdvReac Type Severity Reaction Status Date / Time
diphenhydramine HCl Allergy HALLUCINATI Verified 11/04/24 16:45
[From Benadryl] ONS?
etanercept [From Enbrel] Allergy Hives Verified 11/04/24 16:45
gabapentin Allergy Harrell Verified 11/04/24 16:45
Pan
Sydrome
Influenza Virus Vaccines Allergy Anaphylaxis Verified 11/04/24 16:45
latex [Latex] Allergy Rash Verified 11/04/24 16:45
levofloxacin Allergy svt Verified 11/04/24 16:45
Sulfa (Sulfonamide Allergy Rash Verified 11/04/24 16:45
Antibiotics)
sulfamethoxazole Allergy Rash Verified 11/04/24 16:45
topiramate [From Topamax] Allergy hair falls Verified 11/04/24 16:45
out
trimethoprim Allergy Rash Verified 11/04/24 16:45
Home Medications
�Medication �Instructions �Recorded �Confirmed �Last Taken �Type
cetirizine 10 mg tablet (Zyrtec) 10 mg PO DAILYPRN PRN allergies 11/04/24 11/04/24 Unknown History
cholecalciferol (vitamin D3) 125 250 mcg PO FR Supplement 11/04/24 11/04/24 10/29/24 History
mcg (5,000 unit) tablet (Vitamin
D3)
cod liver oil 1 cap PO HS Supplement 11/04/24 11/04/24 11/03/24 History
duloxetine 30 mg capsule,delayed 90 mg PO HS Mental Health/Anxiety 11/04/24 11/04/24 11/03/24 History
release (Cymbalta)
ibuprofen 400 mg tablet 600 mg PO DAILYPRN PRN mild pain 11/04/24 11/04/24 11/04/24 History
lisdexamfetamine 60 mg capsule 60 mg PO DAILY Mental 11/04/24 11/04/24 11/04/24 History
(Vyvanse) Health/Anxiety
propranolol 60 mg tablet 60 mg PO BIDPRN PRN anixety 11/04/24 11/04/24 Unknown History
therapeutic multivitamin 1 tab PO DAILY Supplement 11/04/24 11/04/24 Unknown History
Review of Systems
-
Unable to Obtain full review of systems at this time due to: Other ( Per HPI)
Vitals / Labs / Diagnostic Testing
Vital Signs
Temp Pulse Resp BP Pulse Ox
97.9 F 98 24 140/89 98
11/05/24 07:35 11/05/24 07:35 11/05/24 07:35 11/05/24 07:35 11/05/24 07:45
Lab Data
11/05/24 06:44
11/05/24 06:44
Microbiology
11/04/24 19:43 Nasal Swab Influenza Types A & B (JIMBO) - Final
Negative for Influenza A & B, NAAT
Negative results must be combined with clinical observations
and patient history.
Nucleic Acid Amplification test (NAAT)performed on the
[employer] platform.
Diagnostic Testing:
Physical Exam
-
Exam:
Well-nourished and well-developed in no apparent distress
HEENT-atraumatic, normocephalic
Neck-supple, no JVD, no bruit
Heart-regular rate and rhythm-no murmurs, rubs or gallops
Chest with diminished breath sounds, prolonged expiratory time, expiratory wheezes diffusely and no crackles
Back without tenderness
Abdomen-soft, nontender, nondistended, no hepatosplenomegaly
Extremities-no cyanosis, clubbing, edema and good peripheral pulses
Integument-intact, no rashes, lesions or ecchymosis
Neurology-alert and oriented, nonfocal motor and sensory exam
Assessment
-
43-year-old non-smoking female with a history of anxiety and depression who presented with cough, wheezing and shortness of breath after similar episode in the previous month treated with antibiotics and steroids and now reports nonproductive cough,
myalgias, joint pains and fevers of 103-pulmonary consulted for ongoing wheezing and shortness of breath 11/05/2024.
Asthma moderate persistent with acute exacerbation
Eosinophilia-
Bronchitis-procalcitonin negative-suspect viral
Pain syndrome
Mild fyzoke-qqvhiojnce-jamzksjfkz 11.8
Obesity with BMI 38
Conditions present prior to admission:
Asthma.
PTSD.
OCD.
Anxiety/depression.
Skull fracture.
? Rheumatoid arthritis versus fibromyalgia.
Tonsillectomy.
Plan
Respiratory decompensation likely due to underlying asthma-moderate persistent with acute exacerbation likely triggered by viral illness
Supplemental oxygen as needed
Nebulizers-DuoNebs and budesonide
Mucolytic's
Antitussives
Decadron initiated-eventually convert to prednisone 60 mg with slow taper
Check cultures
Procalcitonin negative
Respiratory viral panel-PCR pending
Observe off antibiotics for now
CT chest summarized below-mild infiltrate at the right [id number]
Pathophysiology of asthma reviewed with patient including inflammatory nature and reversible airway obstruction
Would benefit from outpatient inhaler therapy-Trelegy or Breztri
If recurrent prednisone tapers are required consideration towards Biologics
Outpatient allergy, IgE, eosinophil, etc. workup
Outpatient PFTs
Monitor blood sugar
Insulin supplementation as needed-especially with steroids on board
DVT prophylaxis-on Lovenox
Nutrition
Early mobilization
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
Outpatient pulmonary jyomqz-ci-XNZs, allergy testing, and sleep apnea workup
Diagnostic data:
Chest x-ray 07/29/2024-mild airspace disease left lung base
CT chest 09/16/2024-no significant abnormalities within the chest
CT chest 11/04/2024-no pulmonary embolism, mild right lower lobe infiltrate
Data Reviewed
-
EKG: Report reviewed by me
Radiology: Report reviewed by me
CT Scan: Report reviewed by me
Medical Tests (Nuc Med, Echo etc): Report reviewed by me
Labs: Labs reviewed by me
Old Records: Reviewed
Total Time Spent with Patient (in minutes): 75
--- NOTE | 2024-11-05 10:21 | CM ---
manager med surg reviewed patient's chart and met with patient and patient lives with her spouse and 3 children in a one story home, patient is independent with adl's and ambulation, patient drives, home when stable.
Plan; Home when stable.
PCP: Dr. Marshall
Pharmacy [facility] in [place]
--- NOTE | 2024-11-05 11:57 | W.PN.HOSP.TC ---
Today's Communication/Plan
-
-Antitussive started
-Plan for steroid tapering
-Respiratory viral panel ordered-PCR pending
Assessment / Plan
Assessment / Plan
Ms. Oliveira is a 43-year-old female with a past medical history of questionable rheumatoid arthritis, fibromyalgia, anxiety and depression who presented to the ER on 11/04/2024 with cough, shortness of breath and wheezing. The patient reports her
symptoms started a few days ago with cough and following days she had some myalgias, joint pains and fever and worsening shortness of breath. Additionally, she had similar episode in July 2024 required her to complete 4 course of antibiotics
with steroids.
# Acute asthma attack likely triggered by viral infection versus Pneumonia
-Highly doubt for pneumonia regarding her results(no leukocytosis or left shift, procalcitonin negative, no fever, eosinophilia
-Chest CT:Mild infiltrate at the right base suggesting mild right lower lobe pneumonia. Also imaging shows tree-in-bud pattern-
-Pulmonology on board
-No antibiotics for now
-Nebulizers (DuoNeb and budesonide) as needed-supplemental oxygen if needed
-Antitussive-Robitussin was started
-Taper steroid treatment with with a plan of converting to prednisone 60 mg
-COVID and flu negative
-Respiratory viral panel ordered-PCR pending
-Outpatient PFTs recommended
#Fibromyalgia versus rheumatoid arthritis
-Her post form remover considered her having fibromyalgia not rheumatoid arthritis
-Diagnosed with RA at age 24. Had been on Humira / Plaquenil--she stopped taking Humira more than 5 years ago and stopped Plaquenil in June 2024.
-On duloxetine
-Follow-up with Rheum as an outpatient.
# Normocytic mild anemia
- Needs follow-up with her PCP
#? History of asthma
-Never been diagnosed with asthma at outpatient setting
- Strong family history of asthma
# Hyperglycemia
-Obesity with BMI 38
-Likely steroid-induced
-Hemoglobin A1c was ordered
#OCD/PTSD
- Continue duloxetine
DVT Prophylaxis: Lovenox
Code Status: Full
Anticipated Discharge: 24 - 48 hours
Subjective/Interval History
-
Date of Service: November 05, 2024
Patient reports feeling shortness of breath and having dry cough and wheezing.
Objective Data
-
Labs:
Laboratory Results
11/05/24
06:44
WBC 9.8
Hgb 11.8 L
Hct 36.4 L
Plt Count 252
Sodium 139
Potassium 4.0
Chloride 109 H
Carbon Dioxide 18 L
BUN 16
Creatinine 0.6
Glucose 211 H
Calcium 9.5
Vital Signs:
Vital Signs
Temp Pulse Resp BP Pulse Ox
97.9 F 98 24 140/89 98
11/05/24 07:35 11/05/24 07:35 11/05/24 07:35 11/05/24 07:35 11/05/24 07:45
I&O
11/04/24 11/05/24 11/06/24
06:59 06:59 06:59
Intake Total 480 / 480
Balance 480 / 480
Review of Systems
-
History Source: Patient
EENT: Reports No Symptoms Reported
Respiratory: Reports Cough and Wheezing
Cardiac: Reports No Symptoms
Abdomen/GI: Reports No Symptoms
Genitourinary: Reports No Symptoms
Musculoskeletal: Reports No Symptoms
Skin: Reports No Symptoms
Neuro: Reports No Symptoms
Physical Exam
-
General: Well Developed, Well Nourished and Obese
HEENT: Normocephalic and Atraumatic
Respiratory: Wheezes (expiratory)
Cardiac: Regular Rhythm and S1/S2
GI: Soft, Nontender and Nondistended
Musculoskeletal: No Clubbing, No Cyanosis and No Edema
Skin: Warm
Neuro: Awake, Alert, Oriented and AO x 3
Psych: Calm
[2024-11-05 15:59] VITALS: BP 121/92
[2024-11-05] MEDS: LOVENOX 40 MG SC (19:31)
[2024-11-05] MEDS: PULMICORT 0.5 MG INH (19:39)
[2024-11-05] MEDS: MUCINEX 600 MG PO (20:28)
[2024-11-05] MEDS: CYMBALTA DELAYED RELEASE 90 MG PO (21:32)
[2024-11-05 23:31] VITALS: BP 138/90
[2024-11-06] MEDS: DECADRON 4 MG IV ×3 (00:29→16:19)
[2024-11-06 06:00] VITALS: BMI 38.4
[2024-11-06 07:12] VITALS: BP 126/79
[2024-11-06] MEDS: PULMICORT 0.5 MG INH ×2 (07:32→20:19)
[2024-11-06] MEDS: DUONEB 3 ML INH ×4 (07:32→20:19)
[2024-11-06] MEDS: MUCINEX 600 MG PO ×2 (08:37→19:54)
[2024-11-06 09:39] LABS: Hematocrit 37.9 % (37.0-47.0); Mean Corp Hgb Conc. 31.7 g/dL (33.0-37.0); Mean Corpuscular Hgb 24.9 pg (27.0-31.0); Mean Corpuscular Volume 78.6 fL (81.0-99.0); Platelet Count 298 10^3/uL (130-400); Red Blood Cell Count 4.82 10^6/uL (4.20-5.40); Red Cell Dist. Width 14.2 % (11.5-14.5); White Blood Cell Count 14.8 10^3/uL (4.8-10.8)
[2024-11-06 10:35] LABS: ALT (SGPT) 30 U/L (0-35); AST (SGOT) 25 U/L (14-36); Alkaline Phosphatase 88 U/L (38-126); Blood Urea Nitrogen 18 mg/dl (7-17); Calcium 9.6 mg/dl (8.4-10.2); Carbon Dioxide 21 mmol/L (22-30); Chloride 108 mmol/L (98-107); Estimated Creatinine Clearance > 125 ml/min; Glucose 133 mg/dl (70-99); Potassium 4.5 mmol/L (3.5-5.1); Sodium 138 mmol/L (135-145); Total Bilirubin 0.4 mg/dl (0.2-1.3); Total Protein 6.7 g/dl (6.3-8.2); eGFR > 60.00
[2024-11-06 11:06] LABS: Glycohemoglobin (HgbA1c) 5.9 % (4.0-5.6)
--- NOTE | 2024-11-06 12:23 | W.PN.HOSP.TC ---
Today's Communication/Plan
-
maintain on steroids/neb
repeat cxr reviewed
Assessment / Plan
Assessment / Plan
Ms. Oliveira is a 43-year-old female with a past medical history of questionable rheumatoid arthritis, fibromyalgia, anxiety and depression who presented to the ER on 11/04/2024 with cough, shortness of breath and wheezing. The patient reports her
symptoms started a few days ago with cough and following days she had some myalgias, joint pains and fever and worsening shortness of breath. Additionally, she had similar episode in July 2024 required her to complete 4 course of antibiotics
with steroids.
1. Possible asthma versus reactive airway disease with flare up -patient have ongoing shortness of breath/cough. Bronchospasm and wheezing on exam. Patient does not have any previous history of smoking/asthma episode in the past. Patient does
have strong family history of asthma. Patient not hypoxic, just placed on oxygen for symptomatic control. Maintained on steroids and nebulizer therapy. Patient to get further evaluation with outpatient PFT/allergy/IgE workup.
2. Parainfluenza viral infection -CT finding may in line with viral bronchiolitis, respiratory panel positive for parainfluenza.
3. Right lower lobe infiltrate -no leukocytosis/normal procalcitonin. Patient got dose of antibiotic in ER monitor off of antibiotic. CT images reviewed personally and may have component of viral bronchiolitis. Monitor off antibiotics unless
recommended otherwise by pulmonology.
4. Anxiety -patient is anxious with ongoing symptoms and possibly steroid adding to the problem. Lorazepam as needed has been ordered. Patient also reporting some sleep disturbances and recommended to use lorazepam before going to bed.
5. Possible fibromyalgia -patient in process of following with new rheumatology as there is questionable diagnosis of rheumatoid arthritis, which has been addressed to fibromyalgia at this point. Patient has been on Humira/Plaquenil in the past .
maintain on duloextine.
6. Right-sided pleuritic pain versus musculoskeletal -patient having some cough episode and likely causing right lower rib cage pain versus pleuritic pain from inflammation of right lower lobe. Symptomatic care we will start with tyelnol . Repeat
chest x-ray did not show any worsening lower lobe infiltrate/lobar conversion
DVT Prophylaxis: Lovenox
Code Status: Full
Total time spent : 56 mins
Anticipated Discharge: 24 - 48 hours
Subjective/Interval History
-
Date of Service: November 06, 2024
Continues to remain dyspneic
Placed on oxygen for symptomatic control not hypoxic
Afebrile overnight
No other reported problems
Objective Data
-
Labs:
Laboratory Results
11/06/24
09:02
WBC 14.8 H
Hgb 12.0
Hct 37.9
Plt Count 298
Sodium 138
Potassium 4.5
Chloride 108 H
Carbon Dioxide 21 L
BUN 18 H
Creatinine 0.6
Glucose 133 H
Calcium 9.6
Total Bilirubin 0.4
AST 25
ALT 30
Alkaline Phosphatase 88
Vital Signs:
Vital Signs
Temp Pulse Resp BP Pulse Ox
98.4 F 87 18 126/79 96
11/06/24 07:12 11/06/24 11:46 11/06/24 11:46 11/06/24 07:12 11/06/24 11:46
I&O
11/05/24 11/06/24 11/07/24
06:59 06:59 06:59
Intake Total 480 / 480 240 / 240
Balance 480 / 480 240 / 240
Review of Systems
-
Respiratory: Reports Cough, Trouble Breathing and Wheezing
Cardiac: Reports No Symptoms
Abdomen/GI: Reports No Symptoms
Physical Exam
-
General: Obese
Respiratory: Wheezes (expiratory)
Cardiac: Regular Rhythm and S1/S2
GI: Soft, Nontender and Nondistended
Musculoskeletal: No Edema
Neuro: Awake, Alert, Oriented and AO x 3
Psych: Calm
[2024-11-06] MEDS: TYLENOL 1000 MG PO ×2 (13:31→21:30)
[2024-11-06] MEDS: ATIVAN 0.5 MG PO (14:38)
[2024-11-06 15:51] VITALS: BP 135/81
--- NOTE | 2024-11-06 16:37 | W.PN.PUL3 ---
Today's Communication / Plan
-
Respiratory viral panel positive for parainfluenza
Continue supportive care
Raise steroids to Solu-Medrol 40 mg IV q6hr
Continue DuoNebs + budesonide
Mucolytics
Up OOB as tolerated
Pulmonary service will continue to follow along and outpatient pulmonary follow-up will also be arranged
Assessment
-
43-year-old non-smoking female with a history of anxiety and depression who presented with cough, wheezing and shortness of breath after similar episode in the previous month treated with antibiotics and steroids and now reports nonproductive cough,
myalgias, joint pains and fevers of 103-pulmonary consulted for ongoing wheezing and shortness of breath 11/05/2024.
Asthma moderate persistent with acute exacerbation due to parainfluenza virus type III (positive on respiratory viral panel)
Eosinophilia-absolute eosinophil count was 400 on 11/04/2024
Acute viral bronchitis-procalcitonin negative
Pain syndrome
Mild anemia
Obesity with BMI 38
Conditions present prior to admission:
Asthma.
PTSD.
OCD.
Anxiety/depression.
Skull fracture.
? Rheumatoid arthritis versus fibromyalgia.
Tonsillectomy.
Plan
Respiratory decompensation likely due to underlying asthma-moderate persistent with acute exacerbation triggered by viral illness
Patient's respiratory viral panel was positive for parainfluenza virus type III
Supplemental oxygen as needed
Nebulizers-DuoNebs and budesonide
Mucolytic's
Antitussives
Decadron initiated-eventually convert to prednisone 60 mg with slow taper -considering she is continuing to feel short of breath, change Decadron 4 mg IV q8hr to site Medrol 40 mg IV q6hr
Check sputum culture if she can produce a decent sample
Procalcitonin negative
Observe off antibiotics for now
CT chest summarized below-mild infiltrate at the right [id number]
Pathophysiology of asthma reviewed with patient including inflammatory nature and reversible airway obstruction
Would benefit from outpatient inhaler therapy-Trelegy or Breztri
If recurrent prednisone tapers are required consideration towards Biologics, likely Dupixent
Outpatient allergy, IgE, eosinophil, etc. workup
Outpatient PFTs
Monitor blood sugar with goal BG >100 and <180
Insulin supplementation as needed-especially with steroids on board
DVT prophylaxis-on Lovenox
Nutrition
Early mobilization
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
Outpatient pulmonary [id number], allergy testing, and sleep apnea workup
Pulmonary service will continue to follow along and will also arrange for outpatient pulmonary follow-up as stated above.
Diagnostic data:
Chest x-ray 07/29/2024-mild airspace disease left lung base
CT chest 09/16/2024-no significant abnormalities within the chest
CT chest 11/04/2024-no pulmonary embolism, mild right lower lobe infiltrate
Total time spent today was 39 minutes for this encounter. Time includes reviewing laboratory test/imaging results, reviewing pertinent medical records, obtaining and reviewing medical history, performing an appropriate exam, ordering medications,
tests and procedures. Time also includes documentation of this encounter, coordinating patient care and communicating with other healthcare professionals. Total time does not include separately billed tests performed on this date of service.
Subjective Data
-
Date of Service:
Date of Service: November 06, 2024
Chief Complaint: Pulmonary Follow Up
Subjective:
Patient was seen and evaluated earlier this afternoon (late note entry). She continues to feel tight in her chest although she is feeling better overall. This morning she did feel worse. She currently denies chest pain, VAZQUEZ, nausea, fevers or
chills.
Review of Systems
General: Other (Negative unless mentioned above)
Objective Data
Data Reviewed
Vital Signs / I&O / Oxygen:
Vital Signs
Temp Pulse Resp BP Pulse Ox
98.4 F 88 18 126/79 98
11/06/24 07:12 11/06/24 07:38 11/06/24 07:38 11/06/24 07:12 11/06/24 07:38
Intake and Output
11/05/24 11/06/24 11/07/24
06:59 06:59 06:59
Intake Total 480 / 480 240 / 240
Balance 480 / 480 240 / 240
SaO2 98
Nasal Cannula flow liters per 2
minute
Physical Exam
General: Respiratory Distress (negative), Chills (negative) and Sweats (negative)
HEENT: Normocephalic and Anicteric
Cardiovascular: S1-S2 and Peripheral Edema (negative)
Respiratory: Wheeze (negative), Rhonchi (negative), Non-Labored Respirations, Stridor (Bilaterally) and Other (Coarse breath sounds heard bilateral)
GI: Soft, Distended (Abdominal obesity), Non Tender and Normal Bowel Sounds
Neurology: AO x 3 and Tremors (negative)
Skin: Warm, Dry, Cyanosis (negative) and Jaundice (negative)
Labs/Micro/Reports
Microbiology
11/05/24 16:10 Nasalpharynx Influenza Type A (PCR) - Final
Not Detected
11/05/24 16:10 Nasalpharynx Influenza Type A (H1) (PCR) - Final
Not Detected
11/05/24 16:10 Nasalpharynx Influenza Type A (H3) (PCR) - Final
Not Detected
11/05/24 16:10 Nasalpharynx Influenza Type B (PCR) - Final
Not Detected
11/05/24 16:10 Nasalpharynx Resp Syncytial Virus Type A (PCR) - Final
Not Detected
11/05/24 16:10 Nasalpharynx Resp Syncytial Virus Type B (PCR) - Final
Not Detected
11/05/24 16:10 Nasalpharynx Adenovirus DNA (PCR) - Final
Not Detected
11/05/24 16:10 Nasalpharynx Human Metapneumovirus (PCR) - Final
Not Detected
11/05/24 16:10 Nasalpharynx Parainfluenza Virus Type 1 (PCR) - Final
Not Detected
11/05/24 16:10 Nasalpharynx Parainfluenza Virus Type 2 (PCR) - Final
Not Detected
11/05/24 16:10 Nasalpharynx Parainfluenza Virus Type 3 (PCR) - Final
DETECTED
11/05/24 16:10 Nasalpharynx Parainfluenza Virus Type 4 - Final
Not Detected
11/05/24 16:10 Nasalpharynx Rhinovirus (PCR) - Final
Not Detected
11/04/24 19:43 Nasal Swab Influenza Types A & B (JIMBO) - Final
Negative for Influenza A & B, NAAT
Negative results must be combined with clinical observations
and patient history.
Nucleic Acid Amplification test (NAAT)performed on the
[employer] platform.
[2024-11-06] MEDS: LOVENOX 40 MG SC (17:23)
[2024-11-06] MEDS: ROBITUSSIN 200 MG PO (20:04)
[2024-11-06] MEDS: CYMBALTA DELAYED RELEASE 90 MG PO (22:14)
[2024-11-06] MEDS: MELATONIN 5 MG PO (22:17)
[2024-11-06] MEDS: SOLU-MEDROL PF 40 MG IV (22:17)
[2024-11-06 23:00] VITALS: BP 122/76
[2024-11-07] MEDS: SOLU-MEDROL PF 40 MG IV ×4 (03:59→21:33)
[2024-11-07] MEDS: TYLENOL 1000 MG PO ×3 (04:00→21:33)
[2024-11-07 04:08] LABS: Glucose - Point of Care 141 mg/dl (70-99)
[2024-11-07 06:00] VITALS: BMI 38.1
[2024-11-07 07:40] VITALS: BP 122/73
[2024-11-07] MEDS: DUONEB 3 ML INH ×4 (07:47→20:17)
[2024-11-07] MEDS: PULMICORT 0.5 MG INH ×2 (07:48→20:17)
[2024-11-07 08:08] LABS: Hematocrit 38.1 % (37.0-47.0); Hemoglobin 12.2 g/dL (12.0-16.0); Mean Corpuscular Hgb 25.1 pg (27.0-31.0); Mean Corpuscular Volume 78.2 fL (81.0-99.0); Mean Platelet Volume 9.9 fL (7.4-10.4); Platelet Count 275 10^3/uL (130-400); Red Blood Cell Count 4.87 10^6/uL (4.20-5.40); Red Cell Dist. Width 14.1 % (11.5-14.5)
[2024-11-07 08:13] LABS: Blood Urea Nitrogen 20 mg/dl (7-17); Calcium 9.4 mg/dl (8.4-10.2); Carbon Dioxide 24 mmol/L (22-30); Chloride 108 mmol/L (98-107); Estimated Creatinine Clearance > 125 ml/min; Glucose 143 mg/dl (70-99); Sodium 136 mmol/L (135-145); eGFR > 60.00
[2024-11-07] MEDS: MUCINEX 600 MG PO ×2 (09:36→19:41)
--- NOTE | 2024-11-07 12:29 | W.PN.HOSP.TC ---
Today's Communication/Plan
-
maintain on IV steroids
possible d/c tomorrow
Assessment / Plan
Assessment / Plan
Ms. Oliveira is a 43-year-old female with a past medical history of questionable rheumatoid arthritis, fibromyalgia, anxiety and depression who presented to the ER on 11/04/2024 with cough, shortness of breath and wheezing. The patient reports her
symptoms started a few days ago with cough and following days she had some myalgias, joint pains and fever and worsening shortness of breath. Additionally, she had similar episode in July 2024 required 2-3 course of antibiotics with steroids.
1. Possible asthma versus reactive airway disease with flare up -patient have ongoing shortness of breath/cough. Bronchospasm and wheezing on exam. Patient does not have any previous history of smoking/asthma episode in the past. Patient does
have strong family history of asthma. Patient not hypoxic, just placed on oxygen for symptomatic control. Maintained on steroids and nebulizer therapy. Patient to get further evaluation with outpatient PFT/allergy/IgE workup. Patient steroid is
adjusted from Decadron to IV Solu-Medrol 40 mg every 6 hours. Patient subjective feeling better today with lung examination clearer
2. Parainfluenza viral infection -CT finding may in line with viral bronchiolitis, respiratory panel positive for parainfluenza.
3. Right lower lobe infiltrate -no leukocytosis/normal procalcitonin. Patient got dose of antibiotic in ER monitor off of antibiotic. CT images reviewed personally and may have component of viral bronchiolitis. Monitor off antibiotics unless
recommended otherwise by pulmonology.
4. Anxiety -patient is anxious with ongoing symptoms and possibly steroid adding to the problem. Lorazepam as needed has been ordered. Patient also reporting some sleep disturbances and recommended to use lorazepam before going to bed.
5. Possible fibromyalgia -patient in process of following with new rheumatology as there is questionable diagnosis of rheumatoid arthritis, which has been addressed to fibromyalgia at this point. Patient has been on Humira/Plaquenil in the past .
maintain on duloextine.
6. Right-sided pleuritic pain versus musculoskeletal -patient having some cough episode and likely causing right lower rib cage pain versus pleuritic pain from inflammation of right lower lobe. Symptomatic care we will start with tyelnol . Repeat
chest x-ray did not show any worsening lower lobe infiltrate/lobar conversion
DVT Prophylaxis: Lovenox
Code Status: Full
Anticipated Discharge: Within 24 hours
Subjective/Interval History
-
Date of Service: November 07, 2024
Subjectively patient feeling better
Dyspnea is improved
Still have ongoing cough
Not hypoxic
Afebrile overnight
Objective Data
-
Labs:
Laboratory Results
11/07/24
07:20
WBC 12.0 H
Hgb 12.2
Hct 38.1
Plt Count 275
Sodium 136
Potassium 5.0
Chloride 108 H
Carbon Dioxide 24
BUN 20 H
Creatinine 0.7
Glucose 143 H
Calcium 9.4
Vital Signs:
Vital Signs
Temp Pulse Resp BP Pulse Ox
98.0 F 95 18 122/73 93
11/07/24 07:40 11/07/24 11:48 11/07/24 11:48 11/07/24 07:40 11/07/24 07:52
I&O
11/06/24 11/07/24 11/08/24
06:59 06:59 06:59
Intake Total 240 / 240 960 / 960 480 / 480
Balance 240 / 240 960 / 960 480 / 480
Review of Systems
-
Respiratory: Reports Cough and Trouble Breathing
Cardiac: Reports No Symptoms
Abdomen/GI: Reports No Symptoms
Physical Exam
-
General: Obese
HEENT: Negative Oxygen
Respiratory: Wheezes (expiratory)
Cardiac: Regular Rhythm and S1/S2
GI: Soft, Nontender and Nondistended
Musculoskeletal: No Edema
Neuro: Awake, Alert, Oriented and AO x 3
Psych: Calm
[2024-11-07] MEDS: ATIVAN 0.5 MG PO ×2 (12:58→19:41)
[2024-11-07 15:25] VITALS: BP 132/84
--- NOTE | 2024-11-07 15:37 | W.PN.PUL3 ---
Today's Communication / Plan
-
Respiratory viral panel positive for parainfluenza
Continue supportive care
On 11/06, raised steroids to Solu-Medrol 40 mg IV q6hr and this has resulted in marked improvement in her respiratory status and now her stridor has resolved
Can likely wean down Solu-Medrol tomorrow (11/08) to 40 mg IV q8hr
Continue DuoNebs + budesonide
Mucolytics
Up OOB as tolerated
Pulmonary service will continue to follow along and outpatient pulmonary follow-up will also be arranged
Assessment
-
43-year-old non-smoking female with a history of anxiety and depression who presented with cough, wheezing and shortness of breath after similar episode in the previous month treated with antibiotics and steroids and now reports nonproductive cough,
myalgias, joint pains and fevers of 103-pulmonary consulted for ongoing wheezing and shortness of breath 11/05/2024.
Asthma moderate persistent with acute exacerbation due to parainfluenza virus type III (positive on respiratory viral panel)
Eosinophilia-absolute eosinophil count was 400 on 11/04/2024
Acute viral bronchitis-procalcitonin negative
Pain syndrome
Mild anemia
Obesity with BMI 38
Conditions present prior to admission:
Asthma.
PTSD.
OCD.
Anxiety/depression.
Skull fracture.
? Rheumatoid arthritis versus fibromyalgia.
Tonsillectomy.
Plan
Respiratory decompensation likely due to underlying asthma-moderate persistent with acute exacerbation triggered by viral illness
Patient's respiratory viral panel was positive for parainfluenza virus type III
Supplemental oxygen as needed
Nebulizers-DuoNebs and budesonide
Mucolytics
Antitussives
Decadron initiated-eventually convert to prednisone 60 mg with slow taper -considering she is continuing to feel short of breath, Decadron 4 mg IV q8hr changed to Solu-Medrol 40 mg IV q6hr on 5/17
- Can likely wean down Solu-Medrol tomorrow to 40 mg IV q8hr
Check sputum culture if she can produce a decent sample
Procalcitonin negative
Observe off antibiotics for now
CT chest summarized below-mild infiltrate at the right [id number]
Pathophysiology of asthma reviewed with patient including inflammatory nature and reversible airway obstruction
Would benefit from outpatient inhaler therapy-Trelegy or Breztri
If recurrent prednisone tapers are required consideration towards Biologics, likely Dupixent
Outpatient allergy, IgE, eosinophil, etc. workup
Outpatient PFTs
Monitor blood sugar with goal BG >100 and <180
Insulin supplementation as needed-especially with steroids on board
DVT prophylaxis-on Lovenox
Nutrition
Early mobilization
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
Outpatient pulmonary [id number], allergy testing, and sleep apnea workup
Pulmonary service will continue to follow along and will also arrange for outpatient pulmonary follow-up as stated above.
Diagnostic data:
Chest x-ray 07/29/2024-mild airspace disease left lung base
CT chest 09/16/2024-no significant abnormalities within the chest
CT chest 11/04/2024-no pulmonary embolism, mild right lower lobe infiltrate
Total time spent today was 36 minutes for this encounter. Time includes reviewing laboratory test/imaging results, reviewing pertinent medical records, obtaining and reviewing medical history, performing an appropriate exam, ordering medications,
tests and procedures. Time also includes documentation of this encounter, coordinating patient care and communicating with other healthcare professionals. Total time does not include separately billed tests performed on this date of service.
Subjective Data
-
Date of Service:
Date of Service: November 07, 2024
Chief Complaint: Pulmonary Follow Up
Subjective:
Patient seen and evaluated earlier this afternoon (late note entry). She feels much better overall today. Feels shaky from the steroids but she is breathing much better, does not feel as tight. Her children and present at bedside. All
questions were answered. Patient denies chest pain, VAZQUEZ, nausea, fevers or chills.
Review of Systems
General: Other (Negative unless mentioned above)
Objective Data
Data Reviewed
Vital Signs / I&O / Oxygen:
Vital Signs
Temp Pulse Resp BP Pulse Ox
98.0 F 99 18 122/73 93
11/07/24 07:40 11/07/24 07:52 11/07/24 07:52 11/07/24 07:40 11/07/24 07:52
Intake and Output
11/06/24 11/07/24 11/08/24
06:59 06:59 06:59
Intake Total 240 / 240 960 / 960 480 / 480
Balance 240 / 240 960 / 960 480 / 480
SaO2 93
Nasal Cannula flow liters per 0
minute
Physical Exam
General: Respiratory Distress (negative), Comfortable, Chills (negative) and Sweats (negative)
HEENT: Normocephalic and Anicteric
Cardiovascular: S1-S2 and Peripheral Edema (negative)
Respiratory: Wheeze (negative), Crackles (negative), Rhonchi (negative), Non-Labored Respirations and Stridor (negative)
GI: Soft, Distended (Abdominal obesity), Non Tender and Normal Bowel Sounds
Neurology: AO x 3 and Tremors (negative)
Skin: Warm, Dry, Cyanosis (negative) and Jaundice (negative)
Labs/Micro/Reports
Lab Data
11/07/24 07:20
11/07/24 07:20
Microbiology
11/05/24 16:10 Nasalpharynx Influenza Type A (PCR) - Final
Not Detected
11/05/24 16:10 Nasalpharynx Influenza Type A (H1) (PCR) - Final
Not Detected
11/05/24 16:10 Nasalpharynx Influenza Type A (H3) (PCR) - Final
Not Detected
11/05/24 16:10 Nasalpharynx Influenza Type B (PCR) - Final
Not Detected
11/05/24 16:10 Nasalpharynx Resp Syncytial Virus Type A (PCR) - Final
Not Detected
11/05/24 16:10 Nasalpharynx Resp Syncytial Virus Type B (PCR) - Final
Not Detected
11/05/24 16:10 Nasalpharynx Adenovirus DNA (PCR) - Final
Not Detected
11/05/24 16:10 Nasalpharynx Human Metapneumovirus (PCR) - Final
Not Detected
11/05/24 16:10 Nasalpharynx Parainfluenza Virus Type 1 (PCR) - Final
Not Detected
11/05/24 16:10 Nasalpharynx Parainfluenza Virus Type 2 (PCR) - Final
Not Detected
11/05/24 16:10 Nasalpharynx Parainfluenza Virus Type 3 (PCR) - Final
DETECTED
11/05/24 16:10 Nasalpharynx Parainfluenza Virus Type 4 - Final
Not Detected
11/05/24 16:10 Nasalpharynx Rhinovirus (PCR) - Final
Not Detected
11/04/24 19:43 Nasal Swab Influenza Types A & B (JIMBO) - Final
Negative for Influenza A & B, NAAT
Negative results must be combined with clinical observations
and patient history.
Nucleic Acid Amplification test (NAAT)performed on the
[employer] platform.
[2024-11-07] MEDS: LOVENOX 40 MG SC (16:46)
[2024-11-07] MEDS: MELATONIN 5 MG PO (21:33)
[2024-11-07] MEDS: CYMBALTA DELAYED RELEASE 90 MG PO (21:33)
[2024-11-07 23:00] VITALS: BP 107/60
[2024-11-08] MEDS: TYLENOL 1000 MG PO ×3 (05:07→20:12)
[2024-11-08 05:10] VITALS: BMI 37.8
[2024-11-08 07:00] VITALS: BP 138/83
--- NOTE | 2024-11-08 07:55 | W.PN.HOSP.TC ---
Addendum entered and electronically signed by Jessika Sahu MD 11/08/24 17:34:
I saw and evaluated the patient independently. I reviewed the resident�s note and agree with findings and plan as documented by Dr. Noland.
GENERAL: well developed, well nourished, female in no apparent distress
HEENT: NC/AT
HEART: regular rate and rhythm, +S1, +S2
LUNGS : faint wheezes bilaterally
ABDOM: soft, nontender, nondistended, + bowel sounds
EXT: no cyanosis, clubbing, or edema
NEUROLOGIC: grossly intact
reactive airway disease with flare up likely from parainfluenza--No any previous history of asthma episode in the past- but has strong family history of asthma--on RA--oral steroids with taper--apprec pulm--hopefully home tomorrow--Will need
further evaluation with outpatient PFT/allergy/IgE workup
Parainfluenza viral infection--Symptomatic treatment
Right lower lobe infiltrate -No leukocytosis-Normal procalcitonin-No fever - Patient given one dose of antibiotic at ER monitor off of antibiotic- Monitor off antibiotics unless recommended otherwise by pulmonology.
Anxiety-Lorazepam as needed- Patient also reporting some sleep disturbances and recommended to use lorazepam before going to bed.
Possible fibromyalgia-Patient in process of following with new rheumatology as there is questionable diagnosis of rheumatoid arthritis and recent diagnosis of fibromyalgia (Not taking Humira>5 years and stopped Plaquenil in June 2024) -Continue
duloxetine.
Right-sided chest pain likely pleuritic pain vs musculoskeletal -Can be secondary to cough episodes and likely causing right lower rib cage pain versus pleuritic pain from inflammation of right lower lobe-Continue tyelnol-Repeat chest x-No worsening
lower lobe infiltrate/lobar conversion- Continue to follow without antibiotics
DVT Proph-- Lovenox
Code Status-- Full
Original Note:
Today's Communication/Plan
-
-Steroid switch from IV form to oral with a tapering plan
-Encourage ambulation out of the bed
Assessment / Plan
Assessment / Plan
Ms. Oliveira is a 43-year-old female with a past medical history of questionable rheumatoid arthritis, fibromyalgia, anxiety and depression who presented to the ER on 11/04/2024 with cough, shortness of breath and wheezing. The patient reports her
symptoms started a few days ago with cough and following days she had some myalgias, joint pains and fever and worsening shortness of breath. Additionally, she had similar episode in July 2024 required 2-3 course of antibiotics with steroids.
# Possible asthma attack versus reactive airway disease with flare up
-No any previous history of asthma episode in the past- but has strong family history of asthma
-Respiratory panel positive for parainfluenza
-Supplemental oxygen as needed for symptomatic control--
-Continue steroids with a plan of switching to oral forms and continue tapering by discharge (switch to prednisone 50 mg PO daily by pulmonology)
Continue nebulizers, mucolytic's, antitussives as needed
-Pulmonology on board
-Will need further evaluation with outpatient PFT/allergy/IgE workup
#Parainfluenza viral infection
-CT finding may in line with viral bronchiolitis, respiratory panel positive for parainfluenza.
- Symptomatic treatment
#Right lower lobe infiltrate
-No leukocytosis
-Normal procalcitonin
-No fever
- Patient given one dose of antibiotic at ER monitor off of antibiotic
- Monitor off antibiotics unless recommended otherwise by pulmonology.
# Anxiety
-Lorazepam as needed
- Patient also reporting some sleep disturbances and recommended to use lorazepam before going to bed.
#Possible fibromyalgia
-Patient in process of following with new rheumatology as there is questionable diagnosis of rheumatoid arthritis and recent diagnosis of fibromyalgia (Not taking Humira>5 years and stopped Plaquenil in June 2024)
-Continue duloxetine.
6. Right-sided chest pain likely pleuritic pain vs musculoskeletal
-Can be secondary to cough episodes and likely causing right lower rib cage pain versus pleuritic pain from inflammation of right lower lobe.
-Continue tyelnol
-Repeat chest x-No worsening lower lobe infiltrate/lobar conversion
- Continue to follow without antibiotics
DVT Prophylaxis: Lovenox
Code Status: Full
Anticipated Discharge: 24 - 48 hours
Subjective/Interval History
-
Date of Service: November 08, 2024
The patient reports improvement with her breathing. No other complaints.
Objective Data
-
Labs:
Laboratory Results
11/08/24
06:00
WBC Pending
Hgb Pending
Hct Pending
Plt Count Pending
Sodium Pending
Potassium Pending
Chloride Pending
Carbon Dioxide Pending
BUN Pending
Creatinine Pending
Glucose Pending
Calcium Pending
Vital Signs:
Vital Signs
Temp Pulse Resp BP Pulse Ox
98.6 F 86 18 107/60 94
11/07/24 23:00 11/07/24 23:00 11/07/24 23:00 11/07/24 23:00 11/07/24 23:00
I&O
11/07/24 11/08/24 11/09/24
06:59 06:59 06:59
Intake Total 960 / 960 1080 / 1080
Balance 960 / 960 1080 / 1080
Review of Systems
-
History Source: Patient
Constitutional: Reports No Symptoms
EENT: Reports No Symptoms Reported
Respiratory: Reports Cough, Wheezing and Other (mild shortness of breath )
Cardiac: Reports No Symptoms
Abdomen/GI: Reports No Symptoms
Genitourinary: Reports No Symptoms
Musculoskeletal: Reports No Symptoms
Skin: Reports No Symptoms
Neuro: Reports No Symptoms
Physical Exam
-
General: Well Developed, Well Nourished and No Apparent Distress
HEENT: Normocephalic and Atraumatic
Respiratory: Clear to Auscultation
Cardiac: Regular Rhythm and S1/S2
GI: Soft, Nontender and Nondistended
Musculoskeletal: No Clubbing, No Cyanosis and No Edema
Skin: Warm
Neuro: Awake, Alert, Oriented and AO x 3
Psych: Calm
[2024-11-08] MEDS: PULMICORT 0.5 MG INH ×2 (08:08→20:24)
[2024-11-08] MEDS: DUONEB 3 ML INH ×4 (08:08→20:24)
[2024-11-08] MEDS: MUCINEX 600 MG PO ×2 (08:44→20:12)
[2024-11-08] MEDS: SOLU-MEDROL PF 40 MG IV (08:44)
[2024-11-08 08:53] LABS: Hemoglobin 12.6 g/dL (12.0-16.0); Mean Corp Hgb Conc. 31.5 g/dL (33.0-37.0); Mean Corpuscular Hgb 24.6 pg (27.0-31.0); Mean Platelet Volume 9.4 fL (7.4-10.4); Platelet Count 286 10^3/uL (130-400); Red Blood Cell Count 5.13 10^6/uL (4.20-5.40); Red Cell Dist. Width 13.7 % (11.5-14.5); White Blood Cell Count 14.1 10^3/uL (4.8-10.8)
[2024-11-08 09:10] LABS: Blood Urea Nitrogen 23 mg/dl (7-17); Calcium 9.5 mg/dl (8.4-10.2); Carbon Dioxide 26 mmol/L (22-30); Chloride 104 mmol/L (98-107); Estimated Creatinine Clearance 125 ml/min; Glucose 126 mg/dl (70-99); Potassium 4.4 mmol/L (3.5-5.1); Sodium 136 mmol/L (135-145); eGFR > 60.00
--- NOTE | 2024-11-08 09:54 | W.PN.PUL3 ---
Today's Communication / Plan
-
Discussed care plan today, she is now stable on RA
Not wheezing on exam, but is having insomnia/tremors from steroids
Will transition to PO course, continue taper at discharge
Encouraged OOB/ambulation today
OP FU recommended
Discharge planning per team
Assessment
-
43-year-old non-smoking female with a history of anxiety and depression who presented with cough, wheezing and shortness of breath after similar episode in the previous month treated with antibiotics and steroids and now reports nonproductive cough,
myalgias, joint pains and fevers of 103-pulmonary consulted for ongoing wheezing and shortness of breath 11/05/2024.
Asthma moderate persistent with acute exacerbation due to parainfluenza virus type III (positive on respiratory viral panel)
Eosinophilia-absolute eosinophil count was 400 on 11/04/2024
Acute viral bronchitis-procalcitonin negative
Pain syndrome
Mild anemia
Obesity with BMI 38
Conditions present prior to admission:
Asthma.
PTSD.
OCD.
Anxiety/depression.
Skull fracture.
? Rheumatoid arthritis versus fibromyalgia.
Tonsillectomy.
Plan
Respiratory decompensation likely due to underlying asthma-moderate persistent with acute exacerbation triggered by viral illness
Patient's respiratory viral panel was positive for parainfluenza virus type III
She is stable on RA, sitting in a chair
Continue nebulizers-DuoNebs and budesonide
Mucolytics
Antitussives
Decadron initiated-transition to prednisone 50 mg with taper (having side effects-tremors/insomnia etc)
No wheezing on exam
Sputum culture not able to obtain
Procalcitonin negative
Observe off antibiotics for now
CT chest summarized below-mild infiltrate at the right [id number]
Pathophysiology of asthma reviewed with patient including inflammatory nature and reversible airway obstruction
Would benefit from outpatient inhaler therapy-Trelegy or Breztri
If recurrent prednisone tapers are required consideration towards Biologics, likely Dupixent
Outpatient allergy, IgE, eosinophil, etc. workup
Outpatient PFTs
Monitor blood sugar with goal BG >100 and <180
Insulin supplementation as needed-especially with steroids on board
DVT prophylaxis-on Lovenox
Nutrition
Early mobilization
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
Outpatient pulmonary [id number], allergy testing, and sleep apnea workup
Discharge planning per team
Diagnostic data:
Chest x-ray 07/29/2024-mild airspace disease left lung base
CT chest 09/16/2024-no significant abnormalities within the chest
CT chest 11/04/2024-no pulmonary embolism, mild right lower lobe infiltrate
-----
Total time spent today was 50 minutes for this encounter. Time includes reviewing laboratory test/imaging results, reviewing pertinent medical records, obtaining and reviewing medical history, performing an appropriate exam, ordering medications,
tests and procedures. Time also includes documentation of this encounter, coordinating patient care and communicating with other healthcare professionals. Total time does not include separately billed tests performed on this date of service.
Subjective Data
-
Date of Service:
Date of Service: November 08, 2024
Chief Complaint: Pulmonary Follow Up
Subjective:
Doing well, sitting in chair
Stable on RA
Objective Data
Data Reviewed
Vital Signs / I&O / Oxygen:
Vital Signs
Temp Pulse Resp BP Pulse Ox
98.1 F 87 15 138/83 97
11/08/24 07:00 11/08/24 08:12 11/08/24 08:12 11/08/24 07:00 11/08/24 08:12
Intake and Output
11/07/24 11/08/24 11/09/24
06:59 06:59 06:59
Intake Total 960 / 960 1080 / 1080
Balance 960 / 960 1080 / 1080
SaO2 97
Nasal Cannula flow liters per 0
minute
Physical Exam
General: Respiratory Distress (negative), Comfortable, Chills (negative) and Sweats (negative)
HEENT: Normocephalic, Anicteric and Moist Mucous Membranes
Cardiovascular: S1-S2, Regular Rhythm and Peripheral Edema (negative)
Respiratory: Clear, Non-Labored Respirations and Stridor (negative)
GI: Soft, Distended (Abdominal obesity), Non Tender and Normal Bowel Sounds
Neurology: AO x 3 and Tremors (negative)
Skin: Warm, Dry, Cyanosis (negative) and Jaundice (negative)
Labs/Micro/Reports
Lab Data
11/08/24 08:33
11/08/24 08:33
Microbiology
11/05/24 16:10 Nasalpharynx Influenza Type A (PCR) - Final
Not Detected
11/05/24 16:10 Nasalpharynx Influenza Type A (H1) (PCR) - Final
Not Detected
11/05/24 16:10 Nasalpharynx Influenza Type A (H3) (PCR) - Final
Not Detected
11/05/24 16:10 Nasalpharynx Influenza Type B (PCR) - Final
Not Detected
11/05/24 16:10 Nasalpharynx Resp Syncytial Virus Type A (PCR) - Final
Not Detected
11/05/24 16:10 Nasalpharynx Resp Syncytial Virus Type B (PCR) - Final
Not Detected
11/05/24 16:10 Nasalpharynx Adenovirus DNA (PCR) - Final
Not Detected
11/05/24 16:10 Nasalpharynx Human Metapneumovirus (PCR) - Final
Not Detected
11/05/24 16:10 Nasalpharynx Parainfluenza Virus Type 1 (PCR) - Final
Not Detected
11/05/24 16:10 Nasalpharynx Parainfluenza Virus Type 2 (PCR) - Final
Not Detected
11/05/24 16:10 Nasalpharynx Parainfluenza Virus Type 3 (PCR) - Final
DETECTED
11/05/24 16:10 Nasalpharynx Parainfluenza Virus Type 4 - Final
Not Detected
11/05/24 16:10 Nasalpharynx Rhinovirus (PCR) - Final
Not Detected
[2024-11-08] MEDS: ATIVAN 0.5 MG PO ×2 (11:09→21:45)
[2024-11-08 15:00] VITALS: BP 128/84
[2024-11-08] MEDS: LOVENOX 40 MG SC (17:00)
--- NOTE | 2024-11-08 17:14 | CM ---
Patient seen at bedside with physicians. Patient for possible discharge home tomorrow. CM will continue to follow for discharge planning needs.
Plan; home with no needs.
[2024-11-08] MEDS: MELATONIN 5 MG PO (21:45)
[2024-11-08] MEDS: CYMBALTA DELAYED RELEASE 90 MG PO (21:45)
[2024-11-08 23:00] VITALS: BP 138/82
[2024-11-08 23:28] VITALS: BP 138/82
[2024-11-09] MEDS: TYLENOL 1000 MG PO (04:36)
[2024-11-09 04:39] VITALS: BMI 38.0
--- NOTE | 2024-11-09 05:36 | W.PN.HOSP.TC ---
Addendum entered and electronically signed by Jessika Sahu MD 11/09/24 15:18:
I saw and evaluated the patient independently. I reviewed the resident�s note and agree with findings and plan as documented by Dr. Noland.
GENERAL: well developed, well nourished, female in no apparent distress
HEENT: NC/AT
HEART: regular rate and rhythm, +S1, +S2
LUNGS : faint wheezes bilaterally
ABDOM: soft, nontender, nondistended, + bowel sounds
EXT: no cyanosis, clubbing, or edema
NEUROLOGIC: grossly intact
reactive airway disease with flare up likely from parainfluenza--No previous history of asthma episode in the past but has strong family history of asthma--on room air--oral steroids with taper--apprec pulm-- home--Will need further evaluation with
outpatient PFT/allergy/IgE workup
Parainfluenza viral infection--Symptomatic treatment
Right lower lobe infiltrate -No leukocytosis-Normal procalcitonin-No fever - Patient given one dose of antibiotic at ER monitor off of antibiotic- Monitor off antibiotics unless recommended otherwise by pulmonology.
Anxiety-Lorazepam as needed- Patient also reporting some sleep disturbances and recommended to use lorazepam before going to bed.
Possible fibromyalgia-Patient in process of following with new rheumatology as there is questionable diagnosis of rheumatoid arthritis and recent diagnosis of fibromyalgia (Not taking Humira>5 years and stopped Plaquenil in June 2024) -Continue
duloxetine.
Right-sided chest pain likely pleuritic pain vs musculoskeletal -Can be secondary to cough episodes and likely causing right lower rib cage pain versus pleuritic pain from inflammation of right lower lobe-Continue tyelnol-Repeat chest x-No worsening
lower lobe infiltrate/lobar conversion- Continue to follow without antibiotics
DVT Proph-- Lovenox
Code Status-- Full
OK for D/C
Original Note:
Today's Communication/Plan
-
-Discharge today
Assessment / Plan
Assessment / Plan
Ms. Oliveira is a 43-year-old female with a past medical history of questionable rheumatoid arthritis, fibromyalgia, anxiety and depression who presented to the ER on 11/04/2024 with cough, shortness of breath and wheezing. The patient reports her
symptoms started a few days ago with cough and following days she had some myalgias, joint pains and fever and worsening shortness of breath. Additionally, she had similar episode in July 2024 required 2-3 course of antibiotics with steroids.
# Possible asthma attack versus reactive airway disease with flare up
-Improved
-No any previous history of asthma episode in the past- but has strong family history of asthma
-Respiratory panel positive for parainfluenza III
-Supplemental oxygen as needed for symptomatic control
-Continue steroids with a plan of switching to oral forms and continue tapering by discharge (switch to prednisone PO by pulmonology)
Continue nebulizers, mucolytic's, antitussives as needed
-Pulmonology on board -
-Will need further evaluation with outpatient PFT/allergy/IgE workup-will follow-up with pulmonology at outpatient setting
#Parainfluenza viral infection
-CT finding may in line with viral bronchiolitis, respiratory panel positive for parainfluenza.
- Symptomatic treatment
#Right lower lobe infiltrate
-No leukocytosis
-Normal procalcitonin
-No fever
- Patient given one dose of antibiotic at ER monitor off of antibiotic
- Monitor off antibiotics unless recommended otherwise by pulmonology.
# Anxiety
-Lorazepam as needed
-Her propranolol on hold
-Patient also reporting some sleep disturbances and recommended to use lorazepam before going to bed.
#Possible fibromyalgia
-Patient in process of following with new rheumatology as there is questionable diagnosis of rheumatoid arthritis and recent diagnosis of fibromyalgia (Not taking Humira>5 years and stopped Plaquenil in June 2024)
-Continue duloxetine.
# Right-sided chest pain likely pleuritic pain vs musculoskeletal
-Improving
-Can be secondary to cough episodes and likely causing right lower rib cage pain versus pleuritic pain from inflammation of right lower lobe.
-Continue tyelnol
-Repeat chest x-No worsening lower lobe infiltrate/lobar conversion
- Continue to follow without antibiotics
DVT Prophylaxis: Lovenox
Code Status: Full
Anticipated Discharge: Today
Subjective/Interval History
-
Date of Service: November 09, 2024
Patient reports feeling better. No other complaints
Objective Data
-
Labs:
Laboratory Results
11/09/24
06:00
WBC Pending
Hgb Pending
Hct Pending
Plt Count Pending
Sodium Pending
Potassium Pending
Chloride Pending
Carbon Dioxide Pending
BUN Pending
Creatinine Pending
Glucose Pending
Calcium Pending
Total Bilirubin Pending
AST Pending
ALT Pending
Alkaline Phosphatase Pending
Vital Signs:
Vital Signs
Temp Pulse Resp BP Pulse Ox
98.4 F 94 18 138/82 97
11/08/24 23:00 11/08/24 23:00 11/08/24 23:00 11/08/24 23:00 11/08/24 23:00
I&O
11/07/24 11/08/24 11/09/24
06:59 06:59 06:59
Intake Total 960 / 960 1080 / 1080 480 / 480
Balance 960 / 960 1080 / 1080 480 / 480
Review of Systems
-
All other systems: Reviewed and negative
Physical Exam
-
General: Well Developed, Well Nourished and Comfortable
HEENT: Normocephalic and Atraumatic
Respiratory: Clear to Auscultation
Cardiac: Regular Rhythm and S1/S2
GI: Soft, Nontender and Nondistended
Musculoskeletal: No Clubbing, No Cyanosis and No Edema
Skin: Warm
Neuro: Awake, Alert, Oriented and AO x 3
--- NOTE | 2024-11-09 05:36 | W.DCSUMMARY ---
Addendum entered and electronically signed by Jessika Sahu MD 11/09/24 15:20:
Read, reviewed, and agree. See same day progress note for additional details. Time spent coordinating care, DC planning, review of DC plan of care with resident, transition of care, review of records in EMR, med rec, consults, notes, d/w
consultants, nursing, family, and CM = 31 minutes
Original Note:
Discharge Summary
Discharge Data
Date of Admission: 11/05/24
Date of Discharge: 11/09/24
-
Pending Results: No
Hospital Course
Disposition : Home
Primary care physician : Robert Marshall MD
Principal Discharge diagnosis : Asthma moderate persistent with acute exacerbation due to parainfluenza virus type III
Chronic Discharge diagnosis : Anxiety, Depression, Fibromyalgia, Questionable Rheumatoid arthritis
Hospital Course : The patient presented to ER on 11/04/24 for an evaluation of shortness of breath and cough. The patient reported her symptoms started one week ago and gradually worsened. Due having family history of PE with her mother, she was
obtained a chest CT which noted right lower lobe infiltration. She was given steroid, Magnesium and empirical antibiotic at ER. The patient`s CBC did not show leucocytosis but showed eosinophilia. She was not febrile and did not have sputum. A
severe wheezing were auscultated on her physical exam. Her respiratory viral panel ordered which came positive for parainfluenza virus. She was seen by Pulmonology and considered having acute asthma exacerbation due to parainfluenza virus. She was
continued steroid with improvements of her symptoms. Her steroid treatment was planned to be tapered at discharge. Also it was recommended to use an inhaler like Trelegy or Breztri per pulmonology and it was prescribed for he patient at discharge.
Patient was recommended to follow up with Pulmonology in 1-2 weeks following her discharge to obtain further outpatient studies including Outpatient allergy, IgE, eosinophil, Outpatient PFTs, etc. Her medication, propranolol was hold until she was
seen by pulmonology. Patient`s glucose levels were found elevated likely secondary due to steroid treatment and her Hgb A 1c resulted as 5.9. Patient was recommended to see her PCP.
Important imaging findings :
11/04/24
CT Chest PE Study
INDICATION: Shortness of breath. Tightness in throat for 3 days.
Scanning parameters: CT arteriography of the chest with intravenous contrast material was obtained. 3-D reconstructed coronal imaging of the chest was performed as well. Automated exposure control was used.
Comparison examination: Chest CT 09/16/2024
FINDINGS:
There is no pulmonary embolism.
There is no aortic dissection.
There is no pneumothorax.
There are no abnormal pleural or parenchymal masses.
There is no pleural effusion.
There is mild airspace disease in right lower lobe suggestive of pneumonia.
The mediastinum is normal.
There is no hilar or mediastinal lymphadenopathy.
There is no axillary lymphadenopathy.
Osseous structures show mild degenerative disease..
IMPRESSION:
New findings suggesting mild right lower lobe pneumonia.
No evidence of pulmonary embolus.
Electronically signed by Leila Teran DO, 11/04/2024 6:42 PM
11/06/24
CR Chest - 2 Views
PROCEDURE: CR Chest - 2 Views
CLINICAL INDICATION: Right chest pain.
TECHNIQUE: Frontal and lateral views of the chest were performed.
COMPARISON: Chest CT 11/04/2024. Chest radiographs 07/29/2024.
FINDINGS:
Low lung volumes. No appreciable focal consolidation noting that mild pneumonia was present in the right lower lobe on the recent chest CT. No pleural effusion or pneumothorax. The cardiomediastinal silhouette is normal. The osseous structures are
unremarkable.
IMPRESSION:
The right lower lobe pneumonia identified on the recent chest CT from 11/04/2024 is less well seen by radiograph.
Electronically signed by Quincy Rutledge, 11/06/2024 12:16 PM
Procedure findings :
Discharge Plan
-
Patient Disposition: Home (Routine Discharge)
Discharge Diagnosis/Procedures: Asthma moderate persistent with acute exacerbation due to parainfluenza virus type III
Anxiety
Depression
Fibromyalgia
Questionable Rheumatoid arthritis
Condition: Good
Diet: Diabetic, Carb Controlled
Activity: As tolerated
Driving Restrictions: As prior to admission
Bathing Restrictions: None
Referrals:
Robert Marshall MD [Family Provider] - in less than 1 week
Kunal Walker MD [Active] - in two to three weeks
( Dr. Walker or [facility]
PFTs and consideration towards sleep study)
Prescriptions:
New
guaifenesin 200 mg/5 mL liquid
200 mg PO Q4HPRN PRN (Reason: cough) 5 Days Qty: 118 0RF
albuterol sulfate 90 mcg/actuation HFA aerosol inhaler
2 puff inhalation R Q4HPRN PRN (Reason: asthma) 30 Days Qty: 6.7 0RF
Breztri Aerosphere 160-9-4.8 mcg/actuation HFA aerosol inhaler
2 inh inhalation BID Qty: 5.9 0RF
prednisone 10 mg Tablet
10 mg PO DIRECTED 10 Days Qty: 30 0RF
Rx Instructions:
see taper instructions 40 mg 4 days, 30 mg 3 days, 20 mg 2 days, 10 mg 1 day
fluticasone propion-salmeterol [Advair HFA] 230-21 mcg/actuation HFA aerosol inhaler
2 puff inhalation BID Qty: 12 0RF
Continued
lisdexamfetamine [Vyvanse] 60 mg Capsule
60 mg PO DAILY
cetirizine [Zyrtec] 10 mg Tablet
10 mg PO DAILYPRN PRN (Reason: allergies)
cod liver oil Capsule
1 cap PO HS
therapeutic multivitamin Tablet
1 tab PO DAILY
ibuprofen 400 mg Tablet
600 mg PO DAILYPRN PRN (Reason: mild pain)
duloxetine [Cymbalta] 30 mg Capsule,Delayed Release(Dr/Ec)
90 mg PO HS
cholecalciferol (vitamin D3) [Vitamin D3] 125 mcg (5,000 unit) Tablet
250 mcg PO FR
Held
propranolol 60 mg Tablet
60 mg PO BIDPRN PRN (Reason: anixety)
Hold Instructions: Resume on 11/30/24. consider restarting after follow up with pulmonolgy
Discharge Orders:
Discharge Patient (As Directed); Ordered 11/09/24
Ordered By: Nuha Noland
Discharge Date and Time
Print Language: LEBANESE
[2024-11-09 07:05] VITALS: BP 114/73
[2024-11-09 07:10] LABS: Hematocrit 39.8 % (37.0-47.0); Hemoglobin 12.7 g/dL (12.0-16.0); Mean Corp Hgb Conc. 31.9 g/dL (33.0-37.0); Mean Corpuscular Volume 78.3 fL (81.0-99.0); Mean Platelet Volume 9.4 fL (7.4-10.4); Platelet Count 247 10^3/uL (130-400); Red Blood Cell Count 5.08 10^6/uL (4.20-5.40); Red Cell Dist. Width 13.8 % (11.5-14.5); White Blood Cell Count 12.3 10^3/uL (4.8-10.8)
[2024-11-09] MEDS: DELTASONE 50 MG PO (07:47)
[2024-11-09] MEDS: MUCINEX 600 MG PO (07:47)
[2024-11-09] MEDS: DUONEB 3 ML INH ×2 (07:49→11:15)
[2024-11-09] MEDS: PULMICORT 0.5 MG INH (07:49)
[2024-11-09 08:01] LABS: ALT (SGPT) 20 U/L (0-35); AST (SGOT) 13 U/L (14-36); Albumin 3.7 g/dl (3.5-5.0); Alkaline Phosphatase 69 U/L (38-126); Blood Urea Nitrogen 26 mg/dl (7-17); Calcium 9.3 mg/dl (8.4-10.2); Carbon Dioxide 25 mmol/L (22-30); Chloride 105 mmol/L (98-107); Estimated Creatinine Clearance 125 ml/min; Glucose 95 mg/dl (70-99); Potassium 3.9 mmol/L (3.5-5.1); Sodium 136 mmol/L (135-145); Total Bilirubin 0.4 mg/dl (0.2-1.3); Total Protein 6.1 g/dl (6.3-8.2); eGFR > 60.00
--- NOTE | 2024-11-09 09:39 | W.PN.PUL3 ---
Today's Communication / Plan
-
Doing well today, stable on RA
Prednisone taper at discharge
Recommend OP pulmonary FU
Discharge planning per team
Assessment
-
43-year-old non-smoking female with a history of anxiety and depression who presented with cough, wheezing and shortness of breath after similar episode in the previous month treated with antibiotics and steroids and now reports nonproductive cough,
myalgias, joint pains and fevers of 103-pulmonary consulted for ongoing wheezing and shortness of breath 11/05/2024.
Asthma moderate persistent with acute exacerbation due to parainfluenza virus type III (positive on respiratory viral panel)
Eosinophilia-absolute eosinophil count was 400 on 11/04/2024
Acute viral bronchitis-procalcitonin negative
Pain syndrome
Mild anemia
Obesity with BMI 38
Conditions present prior to admission:
Asthma.
PTSD.
OCD.
Anxiety/depression.
Skull fracture.
? Rheumatoid arthritis versus fibromyalgia.
Tonsillectomy.
Plan
Respiratory decompensation likely due to underlying asthma-moderate persistent with acute exacerbation triggered by viral illness
Patient's respiratory viral panel was positive for parainfluenza virus type III
She is stable on RA, sitting in a chair
Continue nebulizers-DuoNebs and budesonide
Mucolytics
Antitussives
Decadron initiated-transition to prednisone 50 mg with taper (having side effects-tremors/insomnia etc)
No wheezing on exam
Sputum culture not able to obtain
Procalcitonin negative
Observe off antibiotics for now
CT chest summarized below-mild infiltrate at the right [id number]
Pathophysiology of asthma reviewed with patient including inflammatory nature and reversible airway obstruction
Would benefit from outpatient inhaler therapy-Trelegy or Breztri
If recurrent prednisone tapers are required consideration towards Biologics, likely Dupixent
Outpatient allergy, IgE, eosinophil, etc. workup
Outpatient PFTs
Monitor blood sugar with goal BG >100 and <180
Insulin supplementation as needed-especially with steroids on board
DVT prophylaxis-on Lovenox
Nutrition
Early mobilization
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
Outpatient pulmonary [id number], allergy testing, and sleep apnea workup
Discharge planning per team
Diagnostic data:
Chest x-ray 07/29/2024-mild airspace disease left lung base
CT chest 09/16/2024-no significant abnormalities within the chest
CT chest 11/04/2024-no pulmonary embolism, mild right lower lobe infiltrate
-----
Total time spent today was 45 minutes for this encounter. Time includes reviewing laboratory test/imaging results, reviewing pertinent medical records, obtaining and reviewing medical history, performing an appropriate exam, ordering medications,
tests and procedures. Time also includes documentation of this encounter, coordinating patient care and communicating with other healthcare professionals. Total time does not include separately billed tests performed on this date of service.
Subjective Data
-
Date of Service:
Date of Service: November 09, 2024
Chief Complaint: Pulmonary Follow Up
Subjective:
No new complaints, stable on RA
Minimal wheezing, ready to go home
Objective Data
Data Reviewed
Vital Signs / I&O / Oxygen:
Vital Signs
Temp Pulse Resp BP Pulse Ox
97.8 F 90 18 114/73 97
11/09/24 07:05 11/09/24 07:59 11/09/24 07:59 11/09/24 07:05 11/09/24 07:59
Intake and Output
11/08/24 11/09/24 11/10/24
06:59 06:59 06:59
Intake Total 1080 / 1080 480 / 480
Balance 1080 / 1080 480 / 480
SaO2 97
Nasal Cannula flow liters per 5
minute
Physical Exam
General: Respiratory Distress (negative), Comfortable, Chills (negative) and Sweats (negative)
HEENT: Normocephalic, Anicteric and Moist Mucous Membranes
Cardiovascular: S1-S2, Regular Rhythm and Peripheral Edema (negative)
Respiratory: Wheeze (minimal), Non-Labored Respirations and Stridor (negative)
GI: Soft, Distended (Abdominal obesity), Non Tender and Normal Bowel Sounds
Neurology: AO x 3 and Tremors (negative)
Skin: Warm, Dry, Cyanosis (negative) and Jaundice (negative)
Labs/Micro/Reports
Lab Data
11/09/24 06:45
11/09/24 06:45
[2024-11-09 11:31] VITALS: BP 120/80
--- NOTE | 2024-11-09 14:59 | CM ---
Patient seen earlier today with physicians. Patient eager for discharge home and drove self home. CM will continue to be available as needed.
Plan; home with no needs.
== END 2024-11-09 12:40 | disposition home or self-care (01) | DRG 202 ==
LOC: 4 WEST ACU 08:35
PROVIDERS: Hospitalist; Student in an Organized Health Care Education/Training Program; ADMITTING PHYSICIAN Hospitalist; ATTENDING PHYSICIAN Internal Medicine; CONSULT PHYSICIAN Internal Medicine Critical Care Medicine; EMERGENCY PHYSICIAN Student in an Organized Health Care Education/Training Program; FAMILY PHYSICIAN Family Medicine
DX: J45.41 Moderate persistent asthma with (acute) exacerbation (principal); J18.9 Pneumonia, unspecified organism; B97.89 Other viral agents as the cause of diseases classified elsewhere; F41.9 Anxiety disorder, unspecified; F32.A Depression, unspecified; M79.7 Fibromyalgia; M06.9 Rheumatoid arthritis, unspecified; Z11.52 Encounter for screening for COVID-19; Z87.01 Personal history of pneumonia (recurrent); F43.10 Post-traumatic stress disorder, unspecified; F42.9 Obsessive-compulsive disorder, unspecified; Z82.61 Family history of arthritis; D50.9 Iron deficiency anemia, unspecified; D72.10 Eosinophilia, unspecified; E66.9 Obesity, unspecified; Z68.38 Body mass index [BMI] 38.0-38.9, adult; T38.0X5A Adverse effect of glucocorticoids and synthetic analogues, initial encounter; R73.9 Hyperglycemia, unspecified
CPT/HCPCS: 71046; 71275; 80048; 80053; 82962; 83036; 83880; 84145; 84484; 84703; 85025; 85027; 87502; 87633; 87811; 93005; 94640; 94644; 94667; 94668; 96365; 96367; 96375; 99291; Q9967

== ENCOUNTER → 2025-01-03 16:11 | Outpatient (REF) | payer OTHER, SELFPAY | LOC: DHSLP 16:11 | PROVIDERS: ATTENDING PHYSICIAN Internal Medicine; FAMILY PHYSICIAN Nurse Practitioner Family | DX: G47.33 Obstructive sleep apnea (adult) (pediatric) (principal) | CPT/HCPCS: 95800 ==

== ENCOUNTER → 2025-02-18 11:06 | Outpatient (REF) | payer OTHER, SELFPAY | LOC: PAVMRI 11:06 | PROVIDERS: ATTENDING PHYSICIAN Psychiatry & Neurology Neurology | DX: M54.16 Radiculopathy, lumbar region (principal) | CPT/HCPCS: 72158; A9575 ==

== ENCOUNTER → 2025-05-12 09:25 | Outpatient (REF) | payer OTHER, SELFPAY | LOC: OHS 09:25 | PROVIDERS: ATTENDING PHYSICIAN Nurse Practitioner Family | DX: Z23 Encounter for immunization (principal) | CPT/HCPCS: 36415; 86480 ==

== ENCOUNTER → 2025-05-13 12:02 | Outpatient (REF) | payer OTHER, SELFPAY | LOC: REG 12:02 | DX: Z00.00 Encounter for general adult medical examination without abnormal findings (principal) | CPT/HCPCS: 36415 ==